=== PATIENT | male | born 1940 | race Caucasian/White ===

== ENCOUNTER → 2021-12-01 | Outpatient (CLI) | payer MEDICARE ==
[2021-12-01 10:03] LABS: INR 2.3 (<1.2); Prothrombin Time 23.1 sec (9.0-12.0)
== END | disposition home or self-care (01) ==
LOC: LABWHC1 09:30
PROVIDERS: ATTEND Dentist Oral and Maxillofacial Surgery
DX: Z51.81 Encounter for therapeutic drug level monitoring (principal)
CPT/HCPCS: 36415; 85610

== ENCOUNTER 2021-12-25 23:52 | Inpatient (IN) | payer MEDICARE ==
--- NOTE | 2021-12-26 00:06 | ED ---
SOB HPI - General Chief Complaint: Shortness of Breath Stated Complaint: MICA Time Seen by Provider: 12/26/21 00:05 Source: patient, family, RN notes reviewed, old records reviewed Mode of arrival: EMS Limitations: no limitations - History of Present Illness Initial Comments: This is a 81-year-old male DF for evaluation. Patient unable to find history s econdary to severe distress. Patient resents in significant respiratory distress respiratory failure placed on BiPAP on arrival and continued on BiPAP here in the emergency department. Patient initially presented with shortness of breath EMS. MD Complaint: shortness of breath, "asthma attack", anxiety -: hour(s) Radiation: back Severity: severe Severity scale (1-10): 10 Quality: dull Consistency: constant Improves With: nothing Known History Of: COPD Context: recent URI, anxiety, recent illness Associated Symptoms: cough, sputum production Treatments Prior to Arrival: oxygen, bronchodilator, NIPPV - Related Data Allergies Allergy/AdvReac Type Severity Reaction Status Date / Time erythromycin base Allergy Unknown Verified 12/26/21 00:31 penicillin V Allergy Unknown Verified 12/26/21 00:31 Review of Systems ROS Statement: Those systems with pertinent positive or pertinent negative responses have been documented in the HPI. ROS Other: All systems not noted in ROS Statement are negative. General Exam General appearance: alert, anxious, in distress Head exam: Present: atraumatic, normocephalic, normal inspection Eye exam: Present: normal appearance, PERRL, EOMI. Absent: scleral icterus, conjunctival injection, periorbital swelling ENT exam: Present: normal exam, mucous membranes dry Neck exam: Present: normal inspection. Absent: tenderness, meningismus, lymphadenopathy Respiratory exam: Present: normal lung sounds bilaterally, respiratory distress, wheezes, accessory muscle use, decreased breath sounds, prolonged expiratory. Absent: rales, rhonchi, stridor Cardiovascular Exam: Present: normal rhythm, tachycardia, normal heart sounds. Absent: systolic murmur, diastolic murmur, rubs, gallop, clicks GI/Abdominal exam: Present: soft, normal bowel sounds. Absent: distended, tenderness, guarding, rebound, rigid Extremities exam: Present: normal inspection, full ROM, normal capillary refill. Absent: tenderness, pedal edema, joint swelling, calf tenderness Back exam: Present: normal inspection Neurological exam: Present: alert, oriented X3, CN II-XII intact Psychiatric exam: Present: normal affect, normal mood Skin exam: Present: warm, dry, intact, normal color. Absent: rash Course Vital Signs 12/25/21 12/26/21 12/26/21 23:55 00:28 01:31 Temperature 98.9 F Pulse Rate 114 H 104 H 96 Respiratory 32 H 36 H 25 H Rate Blood Pressure 158/83 154/84 143/73 O2 Sat by Pulse 96 95 98 Oximetry 12/26/21 12/26/21 12/26/21 02:29 02:45 03:00 Temperature Pulse Rate 98 96 98 Respiratory 26 H Rate Blood Pressure 145/68 O2 Sat by Pulse 98 Oximetry 12/26/21 12/26/21 04:28 05:00 Temperature Pulse Rate 93 76 Respiratory 24 24 Rate Blood Pressure 137/78 130/75 O2 Sat by Pulse 98 100 Oximetry - Reevaluation(s) Reevaluation #1: 12/26/21 06:17 Medical record is reviewed Reevaluation #2: 12/26/21 06:17 Patient maintained on BiPAP here in the ER Reevaluation #3: 12/26/21 06:17 Patient informed of results and questions answered - Consultations Consultation #1: Spoke with H agree to admit the patient Medical Decision Making - Medical Decision Making 81 male DF for evaluation patient with severe distress, patient placed on BiPAP with significant improvement here in the emergency room. Patient continued to be placed on BiPAP with breathing treatments and cardiopulmonary evaluation - Lab Data Result diagrams: 12/26/21 00:39 12/26/21 00:39 Lab Results 12/26/21 12/26/21 12/26/21 Range/Units 00:39 00:39 00:39 WBC 14.5 H (3.8-10.6) k/uL RBC 4.61 (4.30-5.90) m/uL Hgb 13.7 (13.0-17.5) gm/dL Hct 41.1 (39.0-53.0) % MCV 89.0 (80.0-100.0) fL MCH 29.7 (25.0-35.0) pg MCHC 33.4 (31.0-37.0) g/dL RDW 13.4 (11.5-15.5) % Plt Count 462 H (150-450) k/uL MPV 7.5 Neutrophils % 78 % Lymphocytes % 13 % Monocytes % 6 % Eosinophils % 1 % Basophils % 1 % Neutrophils # 11.3 H (1.3-7.7) k/uL Lymphocytes # 1.8 (1.0-4.8) k/uL Monocytes # 0.9 (0-1.0) k/uL Eosinophils # 0.2 (0-0.7) k/uL Basophils # 0.1 (0-0.2) k/uL PT 26.2 H (9.0-12.0) sec INR 2.6 H (<1.2) APTT 38.3 H (22.0-30.0) sec Sodium 135 L (137-145) mmol/L Potassium 3.7 (3.5-5.1) mmol/L Chloride 96 L (98-107) mmol/L Carbon Dioxide 26 (22-30) mmol/L Anion Gap 13 mmol/L BUN 17 (9-20) mg/dL Creatinine 1.00 (0.66-1.25) mg/dL Est GFR (CKD-EPI)AfAm 82 (>60 ml/min/1.73 sqM) Est GFR (CKD-EPI)NonAf 71 (>60 ml/min/1.73 sqM) Glucose 145 H (74-99) mg/dL Plasma Lactic Acid Gama (0.7-2.0) mmol/L Calcium 9.3 (8.4-10.2) mg/dL Magnesium 1.6 (1.6-2.3) mg/dL Total Bilirubin 1.0 (0.2-1.3) mg/dL AST 34 (17-59) U/L ALT 26 (4-49) U/L Alkaline Phosphatase 78 (38-126) U/L Troponin I (0.000-0.034) ng/mL NT-Pro-B Natriuret Pep pg/mL Total Protein 7.6 (6.3-8.2) g/dL Albumin 4.5 (3.5-5.0) g/dL 12/26/21 12/26/21 12/26/21 Range/Units 00:39 00:39 00:39 WBC (3.8-10.6) k/uL RBC (4.30-5.90) m/uL Hgb (13.0-17.5) gm/dL Hct (39.0-53.0) % MCV (80.0-100.0) fL MCH (25.0-35.0) pg MCHC (31.0-37.0) g/dL RDW (11.5-15.5) % Plt Count (150-450) k/uL MPV Neutrophils % % Lymphocytes % % Monocytes % % Eosinophils % % Basophils % % Neutrophils # (1.3-7.7) k/uL Lymphocytes # (1.0-4.8) k/uL Monocytes # (0-1.0) k/uL Eosinophils # (0-0.7) k/uL Basophils # (0-0.2) k/uL PT (9.0-12.0) sec INR (<1.2) APTT (22.0-30.0) sec Sodium (137-145) mmol/L Potassium (3.5-5.1) mmol/L Chloride (98-107) mmol/L Carbon Dioxide (22-30) mmol/L Anion Gap mmol/L BUN (9-20) mg/dL Creatinine (0.66-1.25) mg/dL Est GFR (CKD-EPI)AfAm (>60 ml/min/1.73 sqM) Est GFR (CKD-EPI)NonAf (>60 ml/min/1.73 sqM) Glucose (74-99) mg/dL Plasma Lactic Acid Gama 1.3 (0.7-2.0) mmol/L Calcium (8.4-10.2) mg/dL Magnesium (1.6-2.3) mg/dL Total Bilirubin (0.2-1.3) mg/dL AST (17-59) U/L ALT (4-49) U/L Alkaline Phosphatase (38-126) U/L Troponin I <0.012 (0.000-0.034) ng/mL NT-Pro-B Natriuret Pep 135 pg/mL Total Protein (6.3-8.2) g/dL Albumin (3.5-5.0) g/dL - EKG Data -: EKG Interpreted by Me (EKG is sinus tachycardia 117 CO 161 QRS 88 QTc 386) - Radiology Data Radiology results: report reviewed (Chest x-rays negative for acute disease), image reviewed Disposition Clinical Impression: Acute exacerbation of chronic obstructive pulmonary disease, Acute respiratory failure, Hypoxia Disposition: ADMITTED IP TO THIS HOSP Condition: Serious Is patient prescribed a controlled substance at d/c from ED?: No
[2021-12-26] MEDS ORDERED: ALBUTEROL NEBULIZED 2.5 MG/3 ML INHALATION STA (00:35)
[2021-12-26] MEDS ORDERED: IPRATROPIUM 0.5 MG/2.5 ML NEBU INHALATION STA (00:35)
[2021-12-26] MEDS ORDERED: methylPREDNISolone SOD SUCCI 125 MG/2 ML VIAL IV STA (00:35)
[2021-12-26] MEDS ORDERED: SODIUM CHLORIDE 0.9% 1,000 ML IV STA (00:35)
[2021-12-26] MEDS ORDERED: MORPHINE SULFATE 2 MG/ML SYRINGE IVP PRN (00:36)
[2021-12-26] MEDS ORDERED: MORPHINE SULFATE 2 MG/ML SYRINGE IVP STA (00:36)
[2021-12-26] MEDS ORDERED: IPRATROPIUM-ALBUTEROL 3 ML NEB INHALATION STA (00:43)
--- NOTE | 2021-12-26 00:54 | XR ---
EXAMINATION TYPE: XR chest 1V portable DATE OF EXAM: 12/26/2021 COMPARISON: 07/02/2016 HISTORY: Short of breath TECHNIQUE: Single view FINDINGS: There is some mild linear density at the lung bases. There is coarsening of interstitial ma rkings. No heart failure seen. Heart size is normal. There are chest leads. IMPRESSION: There are some chronic scarring and atelectasis left lung base. Pulmonary interstitial fi brotic changes. Normal heart. No adverse change compared to old exam.
[2021-12-26 01:07] LABS: Basophils # (A) 0.1 k/uL (0-0.2); Basophils % (A) 1 %; Eosinophils # (A) 0.2 k/uL (0-0.7); Eosinophils % (A) 1 %; HCT 41.1 % (39.0-53.0); HGB 13.7 gm/dL (13.0-17.5); Lymphocytes # (A) 1.8 k/uL (1.0-4.8); Lymphocytes % (A) 13 %; MCH 29.7 pg (25.0-35.0); MCHC 33.4 g/dL (31.0-37.0); Mean Platelet Volume 7.5; Monocytes # (A) 0.9 k/uL (0-1.0); Monocytes % (A) 6 %; Neutrophils # (A) 11.3 k/uL (1.3-7.7); Neutrophils % (A) 78 %; Platelet Count 462 k/uL (150-450); RBC 4.61 m/uL (4.30-5.90); RDW 13.4 % (11.5-15.5); WBC 14.5 k/uL (3.8-10.6)
[2021-12-26 01:21] LABS: Albumin 4.5 g/dL (3.5-5.0); Calcium 9.3 mg/dL (8.4-10.2); Magnesium 1.6 mg/dL (1.6-2.3); Potassium 3.7 mmol/L (3.5-5.1); Total Protein 7.6 g/dL (6.3-8.2)
[2021-12-26 01:25] LABS: INR 2.6 (<1.2); Partial Thromboplastin Time 38.3 sec (22.0-30.0); Prothrombin Time 26.2 sec (9.0-12.0)
[2021-12-26] MEDS ORDERED: MORPHINE SULFATE 4 MG/ML SYRINGE IV PRN (01:29)
[2021-12-26] MEDS ORDERED: ONDANSETRON 4 MG/2 ML VIAL IVP PRN (01:29)
[2021-12-26] MEDS ORDERED: ACETAMINOPHEN TAB 325 MG TAB PO PRN (01:29)
[2021-12-26] MEDS ORDERED: NALOXONE 0.4 MG/ML 1 ML VIAL IV PRN (01:29)
[2021-12-26] MEDS: ALBUTEROL NEBULIZED 2.5 MG/3 ML INHALATION SCH ×5 (01:57→20:24)
[2021-12-26] MEDS: methylPREDNISolone SOD SUCCI 125 MG/2 ML VIAL IV SCH ×3 (06:41→19:24)
[2021-12-26] MEDS: SODIUM CHLORIDE 0.9% 1,000 ML IV SCH ×3 (06:42→18:39)
[2021-12-26] MEDS: IPRATROPIUM-ALBUTEROL 3 ML NEB INHALATION PRN ×4 (08:04→20:24)
[2021-12-26] MEDS ORDERED: ENOXAPARIN 40 MG/0.4 ML SYRINGE SQ SCH (09:00)
[2021-12-26] MEDS: FUROSEMIDE 10 MG/ML 4 ML VIAL IV SCH (11:40)
--- NOTE | 2021-12-26 13:46 | US ---
EXAMINATION TYPE: US venous doppler duplex LE DATE OF EXAM: 12/26/2021 1:26 PM COMPARISON: NONE CLINICAL HISTORY: swelling, asymmetry. EC patient with bilateral lower skin redness and swelling; [employer], CHF, Prior PE 10 years ago; taking blood thinner since then. SIDE PERFORMED: Bilateral TECHNIQUE: The lower extremity deep venous system is examined utilizing real time linear array sonog lily with graded compression, doppler sonography and color-flow sonography. VESSELS IMAGED: Common Femoral Vein Deep Femoral Vein Greater Saphenous Vein * Femoral Vein Popliteal Vein Small Saphenous Vein * Proximal Calf Veins (* superficial vessels) Right Leg: Negative for DVT; small hypoechoic fluid collection noted at right popliteal fossa = 3.7 x 0.8 x0.7cm and suggests Cardenas's Cyst or Popliteal Fossa Cyst. Left Leg: Negative for DVT Edema channels are noted at bilateral ankle level. IMPRESSION: No evidence for DVT at this time.
--- NOTE | 2021-12-26 15:20 | P.CNPUL ---
History of Present Illness Consult date: 12/26/21 Reason for consult: dyspnea, COPD History of present illness: 81-year-old male patient, coming in with worsening shortness of breath. The patient was Hospital as for an acute COPD exacerbation. The patient came into the ED and the patient was having significant respiratory distress and immediately the patient was placed on the BiPAP and currently is off the BiPAP. He is known to have COPD. Last evaluation in our office showed an FEV1 of 71% of predicted. The patient is known to have COPD and the patient remains on a combination of Advair and Spiriva on outpatient basis. Uses Proventil rescue inhaler necessary basis. His been on oxygen at 2.5 L per minute nasal cannula. He had COVID 19 infection back in September 2021. He has been vaccinated and boosted. 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 He apparently has an underlying hypercoagulable state. He has a previous history of DVT of the left lower extremity. For now, he has no chest pain or pleurisy. He has some increased edema in lower extremity bilaterally right more than left. He did have some dental procedure with extraction of 4. teeth. Nevertheless, the patient did not have any aspiration. He is an ex-smoker. Review of Systems Constitutional: Reports fatigue Eyes: denies as per HPI, denies blurred vision, denies bulging eye, denies decreased vision, denies diplopia, denies discharge, denies dry eye, denies irritation, denies itching, denies pain, denies photophobia, denies loss of peripheral vision, denies loss of vision, denies tunnel vision/blind spots Ears: deny: decreased hearing, ear discharge, earache, tinnitus Ears, nose, mouth and throat: Reports as per HPI Breasts: absent: as per HPI, gynecomastia Cardiovascular: Reports decreased exercise tolerance, Reports dyspnea on exertion, Reports leg edema, Reports shortness of breath Respiratory: Reports cough, Reports dyspnea Gastrointestinal: Reports as per HPI Genitourinary: Reports as per HPI Musculoskeletal: Reports as per HPI Musculoskeletal: bilateral: ankle swelling, absent: ankle pain, ankle stiffness Integumentary: Reports as per HPI, Reports darkening of skin Neurological: Reports as per HPI Psychiatric: Reports as per HPI Endocrine: Reports as per HPI Hematologic/Lymphatic: Reports as per HPI Allergic/Immunologic: Reports as per HPI Past Medical History Past Medical History: COPD, Deep Vein Thrombosis (DVT), Hyperlipidemia, Hypertension, Pulmonary Embolus (PE) Past Anesthesia/Blood Transfusion Reactions: No Reported Reaction Smoking Status: Former smoker Past Drug Use History: None Reported Medications and Allergies Home Medications Medication Instructions Recorded Confirmed Type Albuterol Nebulized [Ventolin 2.5 mg INHALATION RT-BID 12/26/21 12/26/21 History Nebulized] Albuterol Sulfate [Albuterol 2 puff PO Q6H PRN 12/26/21 12/26/21 History Sulfate Hfa] Fluticasone Propion/Salmeterol 1 puff INHALATION RT-BID 12/26/21 12/26/21 History [Fluticasone-Salmeterol 250-50] Furosemide [Lasix] 30 mg PO DAILY 12/26/21 12/26/21 History Losartan/Hydrochlorothiazide 1 tab PO DAILY 12/26/21 12/26/21 History [Losartan-Hctz 100-12.5 mg Tab] Niva-Fol 1 tab PO DAILY 12/26/21 12/26/21 History Omeprazole [PriLOSEC] 40 mg PO Q2D 12/26/21 12/26/21 History Potassium Chloride Oral Liquid 20 meq PO BID 12/26/21 12/26/21 History Pravastatin Sodium [Pravachol] 40 mg PO HS 12/26/21 12/26/21 History Tiotropium [place] [Spiriva] 1 cap INHALATION RT-DAILY 12/26/21 12/26/21 History Warfarin [Coumadin] 2.5 mg PO TU 12/26/21 12/26/21 History Warfarin [Coumadin] 5 mg PO SUMOWETHFRSA 12/26/21 12/26/21 History amLODIPine [Norvasc] 5 mg PO DAILY 12/26/21 12/26/21 History metFORMIN HCL [Glucophage] 500 mg PO BID-W/MEALS 12/26/21 12/26/21 History Allergies Allergy/AdvReac Type Severity Reaction Status Date / Time erythromycin base Allergy Unknown Verified 12/26/21 07:34 penicillin V Allergy Unknown Verified 12/26/21 07:34 Physical Exam Vitals: Vital Signs Temp Pulse Pulse Resp BP BP Pulse Ox 12/26/21 15:05 102 H 28 H 03/18/22 14:58 117 H 21 12/26/21 11:38 97 20 12/26/21 11:24 97 18 12/26/21 08:14 94 21 12/26/21 08:04 87 24 12/26/21 08:00 97.8 F 90 20 150/71 90 L 12/26/21 05:00 76 24 130/75 100 12/26/21 04:28 93 24 137/78 98 12/26/21 03:00 98 26 H 145/68 98 12/26/21 02:45 96 12/26/21 02:29 98 12/26/21 01:31 96 25 H 143/73 98 12/26/21 00:28 98.9 F 104 H 36 H 154/84 95 12/25/21 23:55 114 H 32 H 158/83 96 Intake and Output 12/26/21 12/26/21 12/26/21 06:59 14:59 22:59 Other: Weight 114.945 kg Gen. appearance, calm, comfortable, sitting up on a chair, not using accessory muscles of breathing Head exam was generally normal. There was no scleral icterus or corneal arcus. Mucous membranes were moist. Neck was supple and without jugular venous distension, thyromegaly, or carotid bruits. Carotids were easily palpable bilaterally. There was no adenopathy. Lungs sounds are diminished and the patient has scattered expiratory wheezes throughout the lung his bilaterally and prolongation of exhalation phase of breathing Cardiac exam revealed the PMI to be normally situated and sized. The rhythm was regular and no extrasystoles were noted during several minutes of auscultation. The first and second heart sounds were normal and physiologic splitting of the second heart sound was noted. There were no murmurs, rubs, clicks, or gallops. Abdominal exam revealed normal bowel sounds. The abdomen was soft, non-tender, and without masses, organomegaly, or appreciable enlargement of the abdominal aorta. Extremities are swollen right more than left and the patient is chronic venous stasis and lower extremity bilaterally Superficial ulcers of various sizes involving lower extremity bilaterally along with changes of chronic venous stasis on the right Neurologically, the patient is awake and alert and the patient does not have any focal neurological deficit. Cranial nerves are essentially intact. Results - Laboratory Findings CBC and BMP: 12/26/21 00:39 12/26/21 00:39 PT/INR, D-dimer PT 26.2 sec (9.0-12.0) H 12/26/21 00:39 INR 2.6 (<1.2) H 12/26/21 00:39 Abnormal lab findings: Abnormal Labs 12/26/21 12/26/21 12/26/21 00:39 00:39 00:39 WBC 14.5 H Plt Count 462 H Neutrophils # 11.3 H PT 26.2 H INR 2.6 H APTT 38.3 H Sodium 135 L Chloride 96 L Glucose 145 H - Diagnostic Findings Chest x-ray: image reviewed Assessment and Plan Plan: 1 acute COPD exacerbation, no evidence of any acute pneumonia. Chest x-ray showing some chronic scarring and atelectatic changes in lung bases bilaterally. No indication for an acute pneumonia. ProBNP level is not elevated. Troponi ns are all negative. Lactic acid level is at 1.3, the patient has been vaccinated an infected with COVID 19 in the past 2 shortness of breath secondary to above 3 history of chronic COPD with a previous spirometry shows an FEV1 of 71% of related to maintain on Spiriva and Advair an outpatient basis also has a pro- air rescue inhaler and O2 at 2.5 L per minute nasal cannula 4 obesity. 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 with warfarin, INR is therapeutic at 2.6 6 chronic lower extremity edema right more than left, questionable DVT 7 hypertension 8 hyperlipidemia Plan Titrate FiO2 to maintain a saturation above 90% DuoNeb nebulized treatments around the clock 4 times a day IV Solu Medrol 60 mg every 6 hours Doppler of the lower extremity bilaterally to rule out DVTs 2-D echocardiogram Lasix 40 mg IV every 24 hours Resume all medications Continue warfarin and monitor the PT/INR We'll continue to follow
[2021-12-26] MEDS: PANTOPRAZOLE 40 MG TABLET PO SCH (16:19)
[2021-12-26 17:03] LABS: Glucose,Whole Blood 145 mg/dL (75-99)
--- NOTE | 2021-12-26 17:15 | P.HPIM ---
History of Present Illness H&P Date: 12/26/21 Chief Complaint: Shortness of breath 81-year-old male patient, coming in with worsening shortness of breath. The patient was Hospital as for an acute COPD exacerbation. The patient came into the ED and the patient was having significant respiratory distress and immediately the patient was placed on the BiPAP and currently is off the BiPAP. He is known to have COPD. Last evaluation in our office showed an FEV1 of 71% of predicted. The patient is known to have COPD and the patient remains on a combination of Advair and Spiriva on outpatient basis. Uses Proventil rescue inhaler necessary basis. His been on oxygen at 2.5 L per minute nasal cannula. He had COVID 19 infection back in September 2021. He has been vaccinated and boosted. 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 He apparently has an underlying hypercoagulable state. He has a previous history of DVT of the left lower extremity. Laboratory completed in ED reveals WBC of 14.5, hemoglobin 13.7, platelet count of 462, sodium 135, potassium 2.7, BUN/creatinine of 17/1.0 and blood glucose of 145, INR 2.6 Chest x-ray reveals chronic scarring and atelectasis Review of Systems REVIEW OF SYSTEMS: CONSTITUTIONAL: No fever, no malaise, no fatigue. HEENT: No recent visual problems or hearing problems. Denied any sore throat. CARDIOVASCULAR: No chest pain, orthopnea, PND, no palpitations, no syncope. PULMONARY: Shortness of breath, no cough, no hemoptysis. GASTROINTESTINAL: No diarrhea, no nausea, no vomiting, no abdominal pain. NEUROLOGICAL: No headaches, no weakness, no numbness. HEMATOLOGICAL: Denies any bleeding or petechiae. GENITOURINARY: Denies any burning micturition, frequency, or urgency. MUSCULOSKELETAL/RHEUMATOLOGICAL: Denies any joint pain, swelling, or any muscle pain. ENDOCRINE: Denies any polyuria or polydipsia. The rest of the 14-point review of systems is negative. Past Medical History - Past Family History Father Family Medical History: COPD Additional Family Medical History / Comment(s): Father lived to be 90yrs old. Mother Family Medical History: Cancer Additional Family Medical History / Comment(s): Pt does not recall type of cancer. Medications and Allergies Home Medications Medication Instructions Recorded Confirmed Type Albuterol Nebulized [Ventolin 2.5 mg INHALATION RT-BID 12/26/21 12/26/21 History Nebulized] Albuterol Sulfate [Albuterol 2 puff PO Q6H PRN 12/26/21 12/26/21 History Sulfate Hfa] Fluticasone Propion/Salmeterol 1 puff INHALATION RT-BID 12/26/21 12/26/21 History [Fluticasone-Salmeterol 250-50] Furosemide [Lasix] 30 mg PO DAILY 12/26/21 12/26/21 History Losartan/Hydrochlorothiazide 1 tab PO DAILY 12/26/21 12/26/21 History [Losartan-Hctz 100-12.5 mg Tab] Niva-Fol 1 tab PO DAILY 12/26/21 12/26/21 History Omeprazole [PriLOSEC] 40 mg PO Q2D 12/26/21 12/26/21 History Potassium Chloride Oral Liquid 20 meq PO BID 12/26/21 12/26/21 History Pravastatin Sodium [Pravachol] 40 mg PO HS 12/26/21 12/26/21 History Tiotropium [place] [Spiriva] 1 cap INHALATION RT-DAILY 12/26/21 12/26/21 History Warfarin [Coumadin] 2.5 mg PO TU 12/26/21 12/26/21 History Warfarin [Coumadin] 5 mg PO SUMOWETHFRSA 12/26/21 12/26/21 History amLODIPine [Norvasc] 5 mg PO DAILY 12/26/21 12/26/21 History metFORMIN HCL [Glucophage] 500 mg PO BID-W/MEALS 12/26/21 12/26/21 History Allergies Allergy/AdvReac Type Severity Reaction Status Date / Time erythromycin base Allergy Unknown Verified 12/26/21 07:34 penicillin V Allergy Unknown Verified 12/26/21 07:34 Physical Exam Vitals: Vital Signs Temp Pulse Pulse Resp BP BP Pulse Ox 12/26/21 11:38 97 20 12/26/21 11:24 97 18 12/26/21 08:14 94 21 12/26/21 08:04 87 24 12/26/21 08:00 97.8 F 90 20 150/71 90 L 12/26/21 05:00 76 24 130/75 100 12/26/21 04:28 93 24 137/78 98 12/26/21 03:00 98 26 H 145/68 98 12/26/21 02:45 96 12/26/21 02:29 98 12/26/21 01:31 96 25 H 143/73 98 12/26/21 00:28 98.9 F 104 H 36 H 154/84 95 12/25/21 23:55 114 H 32 H 158/83 96 Intake and Output 12/25/21 12/26/21 12/26/21 22:59 06:59 14:59 Other: Weight 114.945 kg Gen. appearance, calm, comfortable, sitting up on a chair, not using accessory muscles of breathing Head exam was generally normal. There was no scleral icterus or corneal arcus. Mucous membranes were moist. Neck was supple and without jugular venous distension, thyromegaly, or carotid bruits. Carotids were easily palpable bilaterally. There was no adenopathy. Lungs sounds are diminished and the patient has scattered expiratory wheezes throughout the lung his bilaterally and prolongation of exhalation phase of breathing Cardiac exam revealed the PMI to be normally situated and sized. The rhythm was regular and no extrasystoles were noted during several minutes of auscultation. The first and second heart sounds were normal and physiologic splitting of the second heart sound was noted. There were no murmurs, rubs, clicks, or gallops. Abdominal exam revealed normal bowel sounds. The abdomen was soft, non-tender, and without masses, organomegaly, or appreciable enlargement of the abdominal aorta. Extremities are swollen right more than left and the patient is chronic venous stasis and lower extremity bilaterally Superficial ulcers of various sizes involving lower extremity bilaterally along with changes of chronic venous stasis on the right Neurologically, the patient is awake and alert and the patient does not have any focal neurological deficit. Cranial nerves are essentially intact. Results CBC & Chem 7: 12/26/21 00:39 12/26/21 00:39 Labs: Abnormal Lab Results - Last 24 Hours (Table) 12/26/21 12/26/21 12/26/21 Range/Units 00:39 00:39 00:39 WBC 14.5 H (3.8-10.6) k/uL Plt Count 462 H (150-450) k/uL Neutrophils # 11.3 H (1.3-7.7) k/uL PT 26.2 H (9.0-12.0) sec INR 2.6 H (<1.2) APTT 38.3 H (22.0-30.0) sec Sodium 135 L (137-145) mmol/L Chloride 96 L (98-107) mmol/L Glucose 145 H (74-99) mg/dL Assessment and Plan Assessment: 1. Acute hypoxemic respiratory failure; patient has been placed on BiPAP which will be titrated as able; pulmonary recommending to titrate FiO2 keeping O2 saturation greater than 90% 2. Acute exacerbation COPD; chest x-ray is negative for any evidence of pneumonia - DuoNeb nebulizer treatments 4 times a day along with IV Solu-Medrol 60 mg every 6 hours 3. Hypertension; amlodipine 5 mg daily; losartan 100 mg daily 4. Diabetes mellitus type 2; metformin 500 mg twice a day; monitor Accu-Cheks before meals and at bedtime with insulin sliding scale 5. History of DVT/PE; bilateral lower extremity venous Doppler is ordered to rule out acute DVT; patient remains on home dose of Coumadin; INR is therapeutic 6. Obesity; counseling done DVT prophylaxis; systemic anticoagulation CODE STATUS; full code
[2021-12-26] MEDS ORDERED: metFORMIN 500 MG TAB PO SCH (17:30)
[2021-12-26] MEDS ORDERED: WARFARIN 5 MG TAB PO SCH (18:00)
[2021-12-26] MEDS: INSULIN ASPART (NovoLOG) 100 UNIT/ML VIAL SQ SCH ×2 (18:39→21:24)
[2021-12-26 21:11] LABS: Glucose,Whole Blood 179 mg/dL (75-99)
[2021-12-26] MEDS: POTASSIUM BICARBONATE/CIT AC 20 MEQ TABLET.EFF PO SCH (21:25)
[2021-12-26] MEDS: PRAVASTATIN SODIUM 40 MG TAB PO SCH (21:25)
[2021-12-27] MEDS: ALBUTEROL NEBULIZED 2.5 MG/3 ML INHALATION SCH ×3 (00:01→07:40)
[2021-12-27] MEDS: methylPREDNISolone SOD SUCCI 125 MG/2 ML VIAL IV SCH ×4 (00:32→17:37)
[2021-12-27] MEDS: SODIUM CHLORIDE 0.9% 1,000 ML IV SCH ×3 (00:35→15:08)
[2021-12-27 06:54] LABS: Glucose,Whole Blood 165 mg/dL (75-99)
--- NOTE | 2021-12-27 07:12 | XR ---
EXAMINATION TYPE: XR chest 1V DATE OF EXAM: 12/27/2021 CLINICAL HISTORY: Difficulty breathing progress study. TECHNIQUE: Single AP portable upright view of the chest is obtained. COMPARISON: Chest x-ray from one day earlier FINDINGS: Persistent left basilar opacity now silhouetting left hemidiaphragm. Right lung remains cl ear. Cardiac silhouette size stable and mildly enlarged. Osseous structures are intact. IMPRESSION: Cardiomegaly with worsening left basilar infiltrate and/or atelectasis and possible new s mall left pleural effusion. Progress study advised.
[2021-12-27] MEDS: IPRATROPIUM-ALBUTEROL 3 ML NEB INHALATION PRN (07:40)
[2021-12-27 07:46] LABS: Prothrombin Time 53.3 sec (9.0-12.0)
[2021-12-27 07:48] LABS: INR 5.3 (<1.2)
[2021-12-27] MEDS: INSULIN ASPART (NovoLOG) 100 UNIT/ML VIAL SQ SCH ×4 (07:50→21:35)
[2021-12-27] MEDS ORDERED: IPRATROPIUM 0.5 MG/2.5 ML NEBU INHALATION SCH (08:00)
[2021-12-27] MEDS: IPRATROPIUM-ALBUTEROL 3 ML NEB INHALATION SCH ×4 (08:11→21:15)
[2021-12-27] MEDS ORDERED: NON FORMULARY DRUG (Losartan/Hydrochlorothiazide [Losartan-Hctz 100-12.5 Mg Tab] 1 EACH Ta PO SCH (09:00)
[2021-12-27] MEDS: amLODIPine 5 MG TAB PO SCH (09:28)
[2021-12-27] MEDS: LOSARTAN 50 MG TAB PO SCH (09:28)
[2021-12-27] MEDS: POTASSIUM BICARBONATE/CIT AC 20 MEQ TABLET.EFF PO SCH ×2 (09:28→21:35)
[2021-12-27] MEDS: hydroCHLOROthiazide 12.5 MG CAP PO SCH (09:28)
[2021-12-27] MEDS: FUROSEMIDE 10 MG/ML 4 ML VIAL IV SCH (09:51)
[2021-12-27 11:25] LABS: Basophils # (A) 0.01 X 10*3/uL (0.00-0.10); Basophils % (A) 0.1 %; Eosinophils # (A) 0 X 10*3/uL (0.04-0.35); Eosinophils % (A) 0 %; HCT 41.7 % (39.6-50.0); HGB 13.2 g/dL (13.0-17.0); Immature Grans, Automated 0.6 %; Lymphocytes # (A) 0.56 X 10*3/uL (0.90-5.00); Lymphocytes % (A) 3.4 %; MCH 28.7 pg (27.0-32.0); MCHC 31.7 g/dL (32.0-37.0); MCV 90.7 fL (80.0-97.0); Mean Platelet Volume 9.6 fL (9.5-12.2); Monocytes # (A) 0.59 X 10*3/uL (0.20-1.00); Monocytes % (A) 3.6 %; NRBC Per 100 WBC 0 /100 WBCS (0.0-0.0); Neutrophils # (A) 15.21 X 10*3/uL (1.80-7.70); Neutrophils % (A) 92.3 %; Platelet Count 471 X 10*3/uL (140-440); RDW 13.5 % (11.5-14.5); WBC 16.47 X 10*3/uL (4.50-10.00)
[2021-12-27 11:43] LABS: Glucose,Whole Blood 179 mg/dL (75-99)
[2021-12-27 11:52] LABS: African American GFR (CKD) 85.8 (60.0-200.0); Albumin 4.5 g/dL (3.8-4.9); Albumin/Globulin Ratio 1.64 (1.60-3.17); Anion Gap 16.5 mmol/L (10.00-18.00); BUN/Creat Ratio 26.01 Ratio (12.00-20.00); Blood Urea Nitrogen 25.2 mg/dL (9.0-27.0); Calcium 9.5 mg/dL (8.7-10.3); Globulin 2.7 g/dL (1.6-3.3); Magnesium 2.1 mg/dL (1.5-2.4); Phosphorus 3.3 mg/dL (2.4-5.1); Potassium 3.7 mmol/L (3.5-5.5); Total Bilirubin 0.5 mg/dL (0.30-1.20); Total Protein 7.2 g/dL (6.2-8.2)
--- NOTE | 2021-12-27 14:04 | P.PN ---
Subjective Progress Note Date: 12/27/21 On today's evaluation of 12/27/2021, the patient is feeling better. The patient is currently off the BiPAP. He was able to use the BiPAP throughout the night yesterday. For now, the patient is on a combination of bronchodilators steroids. Doppler of the lower descending was done and the results are still negative for DVT. The patient also had an echocardiogram results are still pending for now. Meanwhile, the patient is on Lasix 40 mg IV every 12 hours and the dose will be reduced to once a day. He is producing adequate amount of urine output. He remains on DuoNeb nebulized treatments around the clock. He remains on IV Solu Medrol 60 mg every 6 hours. PT/INR is subtherapeutic and is placed on hold for today. IV fluids will be cut down to KVO. The patient is on Coumadin and INR is at 5.3. BUN is at 25 and a creatinine of 1.0. The white cell count is 16.4. No chest pain. No altered mentation. No other significant events otherwise over the past 24 hours. Objective - Vital Signs Vital signs: Vital Signs Temp 97.4 F L 12/27/21 07:03 Pulse 90 12/27/21 11:48 Resp 24 12/27/21 07:03 BP 144/71 12/27/21 07:03 Pulse Ox 97 12/27/21 07:03 Intake & Output 12/26/21 12/27/21 12/27/21 18:59 06:59 18:59 Weight 114.945 kg Other: Voiding Method Toilet Toilet Urinal Urinal # Voids 1 1 - Exam GENERAL EXAM: Alert, active, shortness of breath with limited amount of activity. The patient is less short of breath and the patient is currently off BiPAP on 4 liters about 2 by nasal cannula HEAD: Normocephalic. EYES: Normal reaction of pupils, equal size. NOSE: Clear with pink turbinates. THROAT: No erythema or exudates. NECK: No masses, no JVD. CHEST: No chest wall deformity. LUNGS: Equal air entry with no crackles, wheeze, rhonchi or dullness. CVS: S1 and S2 normal with no audible murmur, regular rhythm. ABDOMEN: No hepatosplenomegaly, normal bowel sounds, no guarding or rigidity. SPINE: No scoliosis or deformity SKIN: No rashes CENTRAL NERVOUS SYSTEM: No focal deficits, tone is normal in all 4 extremities. EXTREMITIES: There is peripheral edema. No clubbing, no cyanosis. Peripheral pulses are intact. - Labs CBC & Chem 7: 12/27/21 06:55 12/27/21 06:55 Labs: Abnormal Lab Results - Last 24 Hours (Table) 12/26/21 12/26/21 12/27/21 Range/Units 17:02 21:10 06:52 WBC (4.50-10.00) X 10*3/uL MCHC (32.0-37.0) g/dL Plt Count (140-440) X 10*3/uL Immature Gran # (0.00-0.04) X 10*3/uL Neutrophils # (1.80-7.70) X 10*3/uL Lymphocytes # (0.90-5.00) X 10*3/uL Eosinophils # (0.04-0.35) X 10*3/uL PT (9.0-12.0) sec INR (<1.2) BUN/Creatinine Ratio (12.00-20.00) Ratio Glucose (70-110) mg/dL POC Glucose (mg/dL) 145 H 179 H 165 H (75-99) mg/dL 12/27/21 12/27/21 12/27/21 Range/Units 06:55 06:55 06:55 WBC 16.47 H (4.50-10.00) X 10*3/uL MCHC 31.7 L (32.0-37.0) g/dL Plt Count 471 H (140-440) X 10*3/uL Immature Gran # 0.10 H (0.00-0.04) X 10*3/uL Neutrophils # 15.21 H (1.80-7.70) X 10*3/uL Lymphocytes # 0.56 L (0.90-5.00) X 10*3/uL Eosinophils # 0 L (0.04-0.35) X 10*3/uL PT 53.3 H (9.0-12.0) sec INR 5.3 H* (<1.2) BUN/Creatinine Ratio 26.01 H (12.00-20.00) Ratio Glucose 171 H (70-110) mg/dL POC Glucose (mg/dL) (75-99) mg/dL 12/27/21 Range/Units 11:41 WBC (4.50-10.00) X 10*3/uL MCHC (32.0-37.0) g/dL Plt Count (140-440) X 10*3/uL Immature Gran # (0.00-0.04) X 10*3/uL Neutrophils # (1.80-7.70) X 10*3/uL Lymphocytes # (0.90-5.00) X 10*3/uL Eosinophils # (0.04-0.35) X 10*3/uL PT (9.0-12.0) sec INR (<1.2) BUN/Creatinine Ratio (12.00-20.00) Ratio Glucose (70-110) mg/dL POC Glucose (mg/dL) 179 H (75-99) mg/dL Assessment and Plan Plan: 1 acute COPD exacerbation, no evidence of any acute pneumonia. Chest x-ray showing some chronic scarring and atelectatic changes in lung bases bilaterally. No indication for an acute pneumonia. ProBNP level is not elevated. Troponins are all negative. Lactic acid level is at 1.3, the patient has been vaccinated an infected with COVID 19 in the past, clinically improving 2 shortness of breath secondary to above, improving 3 history of chronic COPD with a previous spirometry shows an FEV1 of 71% of related to maintain on Spiriva and Advair an outpatient basis also has a pro- air rescue inhaler and O2 at 2.5 L per minute nasal cannula 4 obesity. 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
[2021-12-27 16:25] LABS: Glucose,Whole Blood 149 mg/dL (75-99)
[2021-12-27] MEDS ORDERED: WARFARIN 0.5 MG TAB PO ONE (18:00)
[2021-12-27 20:44] LABS: Glucose,Whole Blood 204 mg/dL (75-99)
[2021-12-27] MEDS: PRAVASTATIN SODIUM 40 MG TAB PO SCH (21:35)
[2021-12-28] MEDS: methylPREDNISolone SOD SUCCI 125 MG/2 ML VIAL IV SCH ×5 (00:58→23:47)
[2021-12-28 05:28] LABS: Prothrombin Time 80.1 sec (9.0-12.0)
[2021-12-28 06:12] LABS: INR 7.8 (<1.2)
[2021-12-28 07:19] LABS: Glucose,Whole Blood 159 mg/dL (75-99)
[2021-12-28] MEDS: IPRATROPIUM-ALBUTEROL 3 ML NEB INHALATION SCH ×4 (08:05→21:15)
[2021-12-28] MEDS: hydroCHLOROthiazide 12.5 MG CAP PO SCH (08:07)
[2021-12-28] MEDS: INSULIN ASPART (NovoLOG) 100 UNIT/ML VIAL SQ SCH ×4 (08:07→21:34)
[2021-12-28] MEDS: LOSARTAN 50 MG TAB PO SCH (08:07)
[2021-12-28] MEDS: amLODIPine 5 MG TAB PO SCH (08:07)
[2021-12-28] MEDS: FUROSEMIDE 10 MG/ML 4 ML VIAL IV SCH (08:07)
[2021-12-28] MEDS: POTASSIUM BICARBONATE/CIT AC 20 MEQ TABLET.EFF PO SCH ×2 (08:09→21:35)
[2021-12-28 11:30] LABS: Glucose,Whole Blood 161 mg/dL (75-99)
[2021-12-28] MEDS: PANTOPRAZOLE 40 MG TABLET PO SCH (11:37)
[2021-12-28] MEDS ORDERED: PHYTONADIONE 2 MG in SODIUM CHLORIDE 0.9% 50 ML IVPB STA (12:42)
[2021-12-28] MEDS ORDERED: FUROSEMIDE 10 MG/ML 4 ML VIAL IV STA (14:16)
--- NOTE | 2021-12-28 14:29 | XR ---
EXAMINATION TYPE: XR chest 1V portable DATE OF EXAM: 12/28/2021 CLINICAL HISTORY: Difficulty breathing and hypoxia progress study. TECHNIQUE: Single AP portable upright view of the chest is obtained. COMPARISON: Chest x-ray from one day earlier and older studies. FINDINGS: Persistent left basilar opacity. Right lung remains predominantly clear. Cardiac silhouett e size stable and mildly enlarged. Osseous structures are intact. IMPRESSION: Cardiomegaly with small to tiny bilateral pleural effusions suspected and left greater th an right bibasilar atelectasis and/or infiltrate redemonstrated. No significant change from one day e
--- NOTE | 2021-12-28 14:59 | P.PN ---
Subjective Progress Note Date: 12/27/21 Principal diagnosis: Acute hypoxemic respiratory failure Acute exacerbation COPD 81-year-old male patient, coming in with worsening shortness of breath. The patient was Hospital as for an acute COPD exacerbation. The patient came into the ED and the patient was having significant respiratory distress and immediately the patient was placed on the BiPAP and currently is off the BiPAP. He is known to have COPD. Last evaluation in our office showed an FEV1 of 71% of predicted. The patient is known to have COPD and the patient remains on a combination of Advair and Spiriva on outpatient basis. Uses Proventil rescue inhaler necessary basis. His been on oxygen at 2.5 L per minute nasal cannula. He had COVID 19 infection back in September 2021. He has been vaccinated and boosted. 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 He apparently has an underlying hypercoagulable state. He has a previous history of DVT of the left lower extremity. Laboratory completed in ED reveals WBC of 14.5, hemoglobin 13.7, platelet count of 462, sodium 135, potassium 2.7, BUN/creatinine of 17/1.0 and blood glucose of 145, INR 2.6 Chest x-ray reveals chronic scarring and atelectasis 12/27/2021, Patient reports some improvement in breathing. The patient is currently off the BiPAP. He was able to use the BiPAP throughout the night yesterday. -- patient remains on a combination of bronchodilators steroids. Doppler of the lower descending was done and the results are negative for DVT. The patient also had an echocardiogram results are still pending for now. -- Patient remains on Lasix 40 mg IV every 12 hours and the dose will be reduced to once a day; DuoNeb nebulized treatments around the clock; IV Solu Medrol 60 mg every 6 hours. PT/INR is subtherapeutic and is placed on hold for today. IV fluids will be cut down to KVO. The patient is on Coumadin and INR is at 5.3. BUN is at 25 and a creatinine of 1.0. The white cell count is 16.4. No chest pain. No altered mentation. No other significant events otherwise over the past 24 hours. Objective - Vital Signs Vital signs: Vital Signs Temp 97.4 F L 12/27/21 07:03 Pulse 90 12/27/21 11:48 Resp 24 12/27/21 07:03 BP 144/71 12/27/21 07:03 Pulse Ox 97 12/27/21 07:03 Intake & Output 12/26/21 12/27/21 12/27/21 18:59 06:59 18:59 Weight 114.945 kg Other: Voiding Method Toilet Toilet Urinal Urinal # Voids 1 1 - Exam Gen. appearance, calm, comfortable, sitting up on a chair, not using accessory muscles of breathing Head exam was generally normal. There was no scleral icterus or corneal arcus. Mucous membranes were moist. Neck was supple and without jugular venous distension, thyromegaly, or carotid bruits. Carotids were easily palpable bilaterally. There was no adenopathy. Lungs sounds are diminished and the patient has scattered expiratory wheezes throughout the lung his bilaterally and prolongation of exhalation phase of breathing Cardiac exam revealed the PMI to be normally situated and sized. The rhythm was regular and no extrasystoles were noted during several minutes of auscultation. The first and second heart sounds were normal and physiologic splitting of the second heart sound was noted. There were no murmurs, rubs, clicks, or gallops. Abdominal exam revealed normal bowel sounds. The abdomen was soft, non-tender, and without masses, organomegaly, or appreciable enlargement of the abdominal aorta. Extremities are swollen right more than left and the patient is chronic venous stasis and lower extremity bilaterally Superficial ulcers of various sizes involving lower extremity bilaterally along with changes of chronic venous stasis on the right Neurologically, the patient is awake and alert and the patient does not have any focal neurological deficit. Cranial nerves are essentially intact. - Labs CBC & Chem 7: 12/27/21 06:55 12/27/21 06:55 Labs: Abnormal Lab Results - Last 24 Hours (Table) 12/26/21 12/26/21 12/27/21 Range/Units 17:02 21:10 06:52 WBC (4.50-10.00) X 10*3/uL MCHC (32.0-37.0) g/dL Plt Count (140-440) X 10*3/uL Immature Gran # (0.00-0.04) X 10*3/uL Neutrophils # (1.80-7.70) X 10*3/uL Lymphocytes # (0.90-5.00) X 10*3/uL Eosinophils # (0.04-0.35) X 10*3/uL PT (9.0-12.0) sec INR (<1.2) BUN/Creatinine Ratio (12.00-20.00) Ratio Glucose (70-110) mg/dL POC Glucose (mg/dL) 145 H 179 H 165 H (75-99) mg/dL 12/27/21 12/27/21 12/27/21 Range/Units 06:55 06:55 06:55 WBC 16.47 H (4.50-10.00) X 10*3/uL MCHC 31.7 L (32.0-37.0) g/dL Plt Count 471 H (140-440) X 10*3/uL Immature Gran # 0.10 H (0.00-0.04) X 10*3/uL Neutrophils # 15.21 H (1.80-7.70) X 10*3/uL Lymphocytes # 0.56 L (0.90-5.00) X 10*3/uL Eosinophils # 0 L (0.04-0.35) X 10*3/uL PT 53.3 H (9.0-12.0) sec INR 5.3 H* (<1.2) BUN/Creatinine Ratio 26.01 H (12.00-20.00) Ratio Glucose 171 H (70-110) mg/dL POC Glucose (mg/dL) (75-99) mg/dL 12/27/21 Range/Units 11:41 WBC (4.50-10.00) X 10*3/uL MCHC (32.0-37.0) g/dL Plt Count (140-440) X 10*3/uL Immature Gran # (0.00-0.04) X 10*3/uL Neutrophils # (1.80-7.70) X 10*3/uL Lymphocytes # (0.90-5.00) X 10*3/uL Eosinophils # (0.04-0.35) X 10*3/uL PT (9.0-12.0) sec INR (<1.2) BUN/Creatinine Ratio (12.00-20.00) Ratio Glucose (70-110) mg/dL POC Glucose (mg/dL) 179 H (75-99) mg/dL Assessment and Plan Assessment: 1. Acute hypoxemic respiratory failure; patient has been placed on BiPAP which will be titrated as able; pulmonary recommending to titrate FiO2 keeping O2 saturation greater than 90% 2. Acute exacerbation COPD; chest x-ray is negative for any evidence of pneumonia - DuoNeb nebulizer treatments 4 times a day along with IV Solu-Medrol 60 mg every 6 hours 3. Hypertension; amlodipine 5 mg daily; losartan 100 mg daily 4. Diabetes mellitus type 2; metformin 500 mg twice a day; monitor Accu-Cheks b efore meals and at bedtime with insulin sliding scale 5. History of DVT/PE; bilateral lower extremity venous Doppler is ordered to rule out acute DVT; patient remains on home dose of Coumadin; INR is therapeutic 6. Obesity; counseling done DVT prophylaxis; systemic anticoagulation CODE STATUS; full code
--- NOTE | 2021-12-28 16:18 | P.PN ---
Subjective Progress Note Date: 12/28/21 On today's evaluation of 12/27/2021, the patient is feeling better. The patient is currently off the BiPAP. He was able to use the BiPAP throughout the night yesterday. For now, the patient is on a combination of bronchodilators steroids. Doppler of the lower descending was done and the results are still negative for DVT. The patient also had an echocardiogram results are still pending for now. Meanwhile, the patient is on Lasix 40 mg IV every 12 hours and the dose will be reduced to once a day. He is producing adequate amount of urine output. He remains on DuoNeb nebulized treatments around the clock. He remains on IV Solu Medrol 60 mg every 6 hours. PT/INR is subtherapeutic and is placed on hold for today. IV fluids will be cut down to KVO. The patient is on Coumadin and INR is at 5.3. BUN is at 25 and a creatinine of 1.0. The white cell count is 16.4. No chest pain. No altered mentation. No other significant events otherwise over the past 24 hours. On 12/28/2021, the patient is doing well. The patient is being treated for an acute COPD exacerbation. The patient is also noted to have increased lower extremity edema and the patient is being dialyzed IV Lasix. There is further optimization in the fluid balance. Echocardiogram results are still pending. Note that the Doppler of the lower extremity were negative for DVTs. INR is still elevated and the patient will be given vitamin K today. No signs of any bleeding. INR today is at 7.8 and I'm recommending giving the patient total of 2 mg IV the patient remains on IV Solu Medrol. No new complaints. The patient has been sleeping in recliner as the patient has not been able to sleep in bed for many years. Objective - Vital Signs Vital signs: Vital Signs Temp 98.0 F 12/28/21 13:38 Pulse 106 H 12/28/21 16:02 Resp 28 H 12/28/21 13:38 BP 143/73 12/28/21 13:38 Pulse Ox 96 12/28/21 13:38 Intake & Output 12/27/21 12/28/21 12/28/21 18:59 06:59 18:59 Other: Voiding Method Toilet Toilet Urinal Urinal # Voids 1 1 - Exam GENERAL EXAM: Alert, active, shortness of breath with limited amount of activity. The patient is less short of breath and the patient is currently off BiPAP on 4 liters about 2 by nasal cannula HEAD: Normocephalic. EYES: Normal reaction of pupils, equal size. NOSE: Clear with pink turbinates. THROAT: No erythema or exudates. NECK: No masses, no JVD. CHEST: No chest wall deformity. LUNGS: Equal air entry with no crackles, wheeze, rhonchi or dullness. CVS: S1 and S2 normal with no audible murmur, regular rhythm. ABDOMEN: No hepatosplenomegaly, normal bowel sounds, no guarding or rigidity. SPINE: No scoliosis or deformity SKIN: No rashes CENTRAL NERVOUS SYSTEM: No focal deficits, tone is normal in all 4 extremities. EXTREMITIES: There is peripheral edema. No clubbing, no cyanosis. Peripheral pulses are intact. - Labs CBC & Chem 7: 12/27/21 06:55 12/27/21 06:55 Labs: Abnormal Lab Results - Last 24 Hours (Table) 12/27/21 12/27/21 12/28/21 Range/Units 16:23 20:20 04:15 PT (9.0-12.0) sec INR (<1.2) POC Glucose (mg/dL) 149 H 204 H (75-99) mg/dL Hemoglobin A1c 6.5 H (0.0-6.0) % 12/28/21 12/28/21 12/28/21 Range/Units 04:15 07:17 11:28 PT 80.1 H (9.0-12.0) sec INR 7.8 H* (<1.2) POC Glucose (mg/dL) 159 H 161 H (75-99) mg/dL Hemoglobin A1c (0.0-6.0) % Assessment and Plan Plan: 1 acute COPD exacerbation, no evidence of any acute pneumonia. Chest x-ray showing some chronic scarring and atelectatic changes in lung bases bilaterally. No indication for an acute pneumonia. ProBNP level is not elevated. Troponins are all negative. Lactic acid level is at 1.3, the patient has been vaccinated an infected with COVID 19 in the past, clinically improving 2 shortness of breath secondary to above, improving 3 history of chronic COPD with a previous spirometry shows an FEV1 of 71% of related to maintain on Spiriva and Advair an outpatient basis also has a pro- air rescue inhaler and O2 at 2.5 L per minute nasal cannula 4 obesity. 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 with warfarin, INR is therapeutic at 2.6 6 chronic lower extremity edema right more than left, questionable DVT 7 hypertension 8 hyperlipidemia Plan Clinically improving Titrate FiO2 to maintain a saturation above 90% DuoNeb nebulized treatments around the clock 4 times a day IV Solu Medrol 60 mg every 6 hours, will suggest IV Solu Medrol for another 24 hours Doppler of the lower extremity bilaterally were negative for DVT 2-D echocardiogram results are still pending Continue Lasix 40 mg IV every 24 hours IV fluids to KVO Resume all medications INR is supratherapeutic and hold her Coumadin for now, give the patient 2 mg IV vitamin K repeated PT/INR. No signs of any bleeding for now. Clinically improving We'll continue to follow
[2021-12-28 17:02] LABS: Glucose,Whole Blood 161 mg/dL (75-99)
[2021-12-28] MEDS: SODIUM CHLORIDE 0.9% 1,000 ML IV SCH (17:02)
[2021-12-28] MEDS ORDERED: WARFARIN 0.5 MG TAB PO ONE (18:00)
--- NOTE | 2021-12-28 20:10 | P.PN ---
Subjective Progress Note Date: 12/28/21 Principal diagnosis: Acute hypoxemic respiratory failure Acute exacerbation COPD 81-year-old male patient, coming in with worsening shortness of breath. The patient was Hospital as for an acute COPD exacerbation. The patient came into the ED and the patient was having significant respiratory distress and immediately the patient was placed on the BiPAP and currently is off the BiPAP. He is known to have COPD. Last evaluation in our office showed an FEV1 of 71% of predicted. The patient is known to have COPD and the patient remains on a combination of Advair and Spiriva on outpatient basis. Uses Proventil rescue inhaler necessary basis. His been on oxygen at 2.5 L per minute nasal cannula. He had COVID 19 infection back in September 2021. He has been vaccinated and boosted. 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 He apparently has an underlying hypercoagulable state. He has a previous history of DVT of the left lower extremity. Laboratory completed in ED reveals WBC of 14.5, hemoglobin 13.7, platelet count of 462, sodium 135, potassium 2.7, BUN/creatinine of 17/1.0 and blood glucose of 145, INR 2.6 Chest x-ray reveals chronic scarring and atelectasis 12/27/2021, Patient reports some improvement in breathing. The patient is currently off the BiPAP. He was able to use the BiPAP throughout the night yesterday. -- patient remains on a combination of bronchodilators steroids. Doppler of the lower descending was done and the results are negative for DVT. The patient also had an echocardiogram results are still pending for now. -- Patient remains on Lasix 40 mg IV every 12 hours and the dose will be reduced to once a day; DuoNeb nebulized treatments around the clock; IV Solu Medrol 60 mg every 6 hours. PT/INR is subtherapeutic and is placed on hold for today. IV fluids will be cut down to KVO. The patient is on Coumadin and INR is at 5.3. BUN is at 25 and a creatinine of 1.0. The white cell count is 16.4. No chest pain. No altered mentation. No other significant events otherwise over the past 24 hours. 12/28/2021 Patient is seen and evaluated in room at bedside; discussed with nursing staff; reports worsening shortness of breath. The patient is being treated for an a cute COPD exacerbation. Vital signs are reviewed and reveal a temperature of 98, pulse 106, respiration 20 and blood pressure 143/73 The patient is also noted to have increased lower extremity edema and the patient is being diuresed with IV Lasix. There is further optimization in the fluid balance. Echocardiogram results are still pending. Note that the Doppler of the lower extremity were negative for DVTs. INR is still elevated and the patient will be given vitamin K today. No signs of any bleeding. INR today is at 7.8 and I'm recommending giving the patient total of 2 mg IV the patient remains on IV Solu Medrol. No new complaints. Objective - Vital Signs Vital signs: Vital Signs Temp 98.0 F 12/28/21 13:38 Pulse 100 12/28/21 13:38 Resp 28 H 12/28/21 13:38 BP 143/73 12/28/21 13:38 Pulse Ox 96 12/28/21 07:52 Intake & Output 12/27/21 12/28/21 12/28/21 18:59 06:59 18:59 Other: Voiding Method Toilet Toilet Urinal Urinal # Voids 1 1 - Exam Gen. appearance, calm, comfortable, sitting up on a chair, not using accessory muscles of breathing Head exam was generally normal. There was no scleral icterus or corneal arcus. Mucous membranes were moist. Neck was supple and without jugular venous distension, thyromegaly, or carotid bruits. Carotids were easily palpable bilaterally. There was no adenopathy. Lungs sounds are diminished and the patient has scattered expiratory wheezes throughout the lung his bilaterally and prolongation of exhalation phase of breathing Cardiac exam revealed the PMI to be normally situated and sized. The rhythm was regular and no extrasystoles were noted during several minutes of auscultation. The first and second heart sounds were normal and physiologic splitting of the second heart sound was noted. There were no murmurs, rubs, clicks, or gallops. Abdominal exam revealed normal bowel sounds. The abdomen was soft, non-tender, and without masses, organomegaly, or appreciable enlargement of the abdominal aorta. Extremities are swollen right more than left and the patient is chronic venous stasis and lower extremity bilaterally Superficial ulcers of various sizes involving lower extremity bilaterally along with changes of chronic venous stasis on the right Neurologically, the patient is awake and alert and the patient does not have any focal neurological deficit. Cranial nerves are essentially intact. - Labs CBC & Chem 7: 12/27/21 06:55 12/27/21 06:55 Labs: Abnormal Lab Results - Last 24 Hours (Table) 12/27/21 12/27/21 12/28/21 Range/Units 16:23 20:20 04:15 PT (9.0-12.0) sec INR (<1.2) POC Glucose (mg/dL) 149 H 204 H (75-99) mg/dL Hemoglobin A1c 6.5 H (0.0-6.0) % 12/28/21 12/28/21 12/28/21 Range/Units 04:15 07:17 11:28 PT 80.1 H (9.0-12.0) sec INR 7.8 H* (<1.2) POC Glucose (mg/dL) 159 H 161 H (75-99) mg/dL Hemoglobin A1c (0.0-6.0) % Assessment and Plan Assessment: 1. Acute hypoxemic respiratory failure; patient has been placed on BiPAP which will be titrated as able; pulmonary recommending to titrate FiO2 keeping O2 saturation greater than 90% 2. Acute exacerbation COPD; chest x-ray is negative for any evidence of pneumonia - DuoNeb nebulizer treatments 4 times a day along with IV Solu-Medrol 60 mg every 6 hours 3. Hypertension; amlodipine 5 mg daily; losartan 100 mg daily 4. Diabetes mellitus type 2; metformin 500 mg twice a day; monitor Accu-Cheks before meals and at bedtime with insulin sliding scale 5. History of DVT/PE; bilateral lower extremity venous Doppler is ordered to rule out acute DVT; patient remains on home dose of Coumadin; INR is therapeutic 6. Obesity; counseling done DVT prophylaxis; systemic anticoagulation CODE STATUS; full code
[2021-12-28 21:15] LABS: Glucose,Whole Blood 190 mg/dL (75-99)
[2021-12-28] MEDS: PRAVASTATIN SODIUM 40 MG TAB PO SCH (21:35)
[2021-12-28] MEDS: guaiFENesin 600 MG TABLET.ER PO SCH (21:35)
[2021-12-29] MEDS: IPRATROPIUM-ALBUTEROL 3 ML NEB INHALATION PRN (02:34)
[2021-12-29] MEDS ORDERED: LORazepam 2 MG/ML INJ IV STA (03:52)
[2021-12-29] MEDS: methylPREDNISolone SOD SUCCI 125 MG/2 ML VIAL IV SCH ×4 (05:03→23:36)
[2021-12-29 06:40] LABS: INR 1.3 (<1.2); Prothrombin Time 13.2 sec (9.0-12.0)
[2021-12-29 07:45] LABS: Glucose,Whole Blood 177 mg/dL (75-99)
[2021-12-29] MEDS: IPRATROPIUM-ALBUTEROL 3 ML NEB INHALATION SCH ×4 (08:44→21:51)
[2021-12-29] MEDS: LOSARTAN 50 MG TAB PO SCH (09:17)
[2021-12-29] MEDS: POTASSIUM BICARBONATE/CIT AC 20 MEQ TABLET.EFF PO SCH ×2 (09:17→21:30)
[2021-12-29] MEDS: guaiFENesin 600 MG TABLET.ER PO SCH ×2 (09:17→21:30)
[2021-12-29] MEDS: INSULIN ASPART (NovoLOG) 100 UNIT/ML VIAL SQ SCH ×4 (09:17→21:29)
[2021-12-29] MEDS: hydroCHLOROthiazide 12.5 MG CAP PO SCH (09:17)
[2021-12-29] MEDS: FUROSEMIDE 10 MG/ML 4 ML VIAL IV SCH (09:18)
[2021-12-29] MEDS: amLODIPine 5 MG TAB PO SCH (09:18)
[2021-12-29 10:17] LABS: Basophils # (A) 0.1 k/uL (0-0.2); Basophils % (A) 0 %; Eosinophils % (A) 0 %; HCT 43.9 % (39.0-53.0); HGB 14.4 gm/dL (13.0-17.5); Lymphocytes # (A) 0.4 k/uL (1.0-4.8); Lymphocytes % (A) 2 %; MCHC 32.7 g/dL (31.0-37.0); Mean Platelet Volume 7.2; Monocytes # (A) 1.6 k/uL (0-1.0); Monocytes % (A) 6 %; Neutrophils # (A) 24.5 k/uL (1.3-7.7); Neutrophils % (A) 91 %; Platelet Count 503 k/uL (150-450); RBC 4.78 m/uL (4.30-5.90); RDW 13.5 % (11.5-15.5); WBC 26.8 k/uL (3.8-10.6)
[2021-12-29 10:29] LABS: African American GFR (CKD) 61 (>60 ml/min/1.73 sqM); Anion Gap 9 mmol/L; Blood Urea Nitrogen 55 mg/dL (9-20); Calcium 9.3 mg/dL (8.4-10.2); Carbon Dioxide 34 mmol/L (22-30); Chloride 94 mmol/L (98-107); Glucose 210 mg/dL (74-99); Non-African American GFR(CKD) 53 (>60 ml/min/1.73 sqM); Potassium 3.5 mmol/L (3.5-5.1); Sodium 137 mmol/L (137-145)
[2021-12-29 11:39] LABS: Glucose,Whole Blood 169 mg/dL (75-99)
[2021-12-29] MEDS: SODIUM CHLORIDE 0.9% 1,000 ML IV SCH (11:51)
--- NOTE | 2021-12-29 12:28 | XR ---
EXAMINATION TYPE: XR chest 1V portable DATE OF EXAM: 12/29/2021 COMPARISON: 12/28/2021 HISTORY: Hypoxia TECHNIQUE: Single frontal view of the chest is obtained. FINDINGS: A bilateral lower lobe infiltrate and small effusion. Heart size stable. Hypertrophic and degenerative change of the spine. Arthropathy of the shoulders. No pneumothorax. IMPRESSION: Stable bilateral infiltrate and pleural effusion.
[2021-12-29] MEDS ORDERED: ALPRAZolam 0.25 MG TAB PO PRN (13:09)
[2021-12-29 13:40] LABS: African American GFR (CKD) 61 (>60 ml/min/1.73 sqM); Anion Gap 10 mmol/L; Blood Urea Nitrogen 56 mg/dL (9-20); Calcium 9.4 mg/dL (8.4-10.2); Carbon Dioxide 35 mmol/L (22-30); Chloride 93 mmol/L (98-107); Glucose 161 mg/dL (74-99); Magnesium 2.4 mg/dL (1.6-2.3); Non-African American GFR(CKD) 53 (>60 ml/min/1.73 sqM); Potassium 3.6 mmol/L (3.5-5.1); Sodium 138 mmol/L (137-145)
[2021-12-29] MEDS: CLINDAMYCIN 300 MG in DEXTROSE 5% IN WATER 50 ML IVPB SCH ×4 (13:46→19:49)
--- NOTE | 2021-12-29 15:37 | P.PN ---
Subjective Progress Note Date: 12/29/21 Principal diagnosis: Shortness of breath On today's evaluation of 12/27/2021, the patient is feeling better. The patient is currently off the BiPAP. He was able to use the BiPAP throughout the night yesterday. For now, the patient is on a combination of bronchodilators steroi ds. Doppler of the lower descending was done and the results are still negative for DVT. The patient also had an echocardiogram results are still pending for now. Meanwhile, the patient is on Lasix 40 mg IV every 12 hours and the dose will be reduced to once a day. He is producing adequate amount of urine output. He remains on DuoNeb nebulized treatments around the clock. He remains on IV Solu Medrol 60 mg every 6 hours. PT/INR is subtherapeutic and is placed on hold for today. IV fluids will be cut down to KVO. The patient is on Coumadin and INR is at 5.3. BUN is at 25 and a creatinine of 1.0. The white cell count is 16.4. No chest pain. No altered mentation. No other significant events otherwise over the past 24 hours. On 12/28/2021, the patient is doing well. The patient is being treated for an acute COPD exacerbation. The patient is also noted to have increased lower extremity edema and the patient is being dialyzed IV Lasix. There is further optimization in the fluid balance. Echocardiogram results are still pending. Note that the Doppler of the lower extremity were negative for DVTs. INR is still elevated and the patient will be given vitamin K today. No signs of any bleeding. INR today is at 7.8 and I'm recommending giving the patient total of 2 mg IV the patient remains on IV Solu Medrol. No new complaints. The patient has been sleeping in recliner as the patient has not been able to sleep in bed for many years. On 12/29/2021 patient seen in follow-up on medical surgical floor. Patient is dyspneic, earlier today she was desaturating on 6 L of high flow nasal cannula to 78%, and he was subsequently placed on BiPAP support and his oxygenation did improve up to 97-98%. He is awake and alert, oriented 3, he sitting up in the chair, his family is at the bedside, he has a congested cough, producing some phlegm, no fever. He describes the phlegm is yellow. No hemoptysis. He remains on once daily dose of Lasix 40 mg, on nebulized bronchodilators and IV steroids. Today's labs have been reviewed, there is been an increase in his white blood cell count up to 26.8, hemoglobin is 14.4, his INR is 1.3, Coumadin remains on hold, d-dimer was negative at less than 0.17, sodium is 138, potassium 3.6, chloride is 93, CO2 is 35, B1 is 56 and creatinine is 1.29. His lactic acid is 1.3. Procalcitonin level has been sent and pending Objective - Vital Signs Vital signs: Vital Signs Temp 98.5 F 12/29/21 14:00 Pulse 99 12/29/21 14:00 Resp 27 H 12/29/21 14:00 BP 112/68 12/29/21 14:00 Pulse Ox 98 12/29/21 14:00 Intake & Output 12/28/21 12/29/21 12/29/21 18:59 06:59 18:59 Output Total 500 740 Balance -500 -740 Output: Urine 500 740 Other: Voiding Method Bedside Commode Bedside Commode Urinal Urinal # Voids 1 # Bowel Movements 0 - Exam GENERAL EXAM: Alert, very pleasant, 81-year-old white male, short of breath, wheezy, sitting up in the chair, on BiPAP support comfortable in no apparent distress. HEAD: Normocephalic/atraumatic. EYES: Normal reaction of pupils, equal size. Conjunctiva pink, sclera white. NOSE: Clear with pink turbinates. THROAT: No erythema or exudates. NECK: No masses, no JVD, no thyroid enlargement, no adenopathy. CHEST: No chest wall deformity. Symmetrical expansion. LUNGS: Equal air entry with diffuse wheezes CVS: Regular rate and rhythm, normal S1 and S2, no gallops, no murmurs, no rubs ABDOMEN: Soft, nontender. No hepatosplenomegaly, normal bowel sounds, no guarding or rigidity. EXTREMITIES: No clubbing, no edema, no cyanosis, 2+ pulses and upper and lower extremities. MUSCULOSKELETAL: Muscle strength and tone normal. SPINE: No scoliosis or deformity SKIN: There is a chronic redness in bilateral lower extremities, with areas of rash CENTRAL NERVOUS SYSTEM: Alert and oriented -3. No focal deficits, tone is normal in all 4 extremities. PSYCHIATRIC: Alert and oriented -3. Appropriate affect. Intact judgment and i nsight. - Labs CBC & Chem 7: 12/29/21 09:47 12/29/21 12:39 Labs: Abnormal Lab Results - Last 24 Hours (Table) 12/28/21 12/28/21 12/29/21 Range/Units 17:00 21:11 05:22 WBC (3.8-10.6) k/uL Plt Count (150-450) k/uL Neutrophils # (1.3-7.7) k/uL Lymphocytes # (1.0-4.8) k/uL Monocytes # (0-1.0) k/uL ESR (0-15) mm/hr PT 13.2 H (9.0-12.0) sec INR 1.3 H (<1.2) Chloride (98-107) mmol/L Carbon Dioxide (22-30) mmol/L BUN (9-20) mg/dL Creatinine (0.66-1.25) mg/dL Glucose (74-99) mg/dL POC Glucose (mg/dL) 161 H 190 H (75-99) mg/dL Magnesium (1.6-2.3) mg/dL 12/29/21 12/29/21 12/29/21 Range/Units 07:33 09:47 09:47 WBC 26.8 H (3.8-10.6) k/uL Plt Count 503 H (150-450) k/uL Neutrophils # 24.5 H (1.3-7.7) k/uL Lymphocytes # 0.4 L (1.0-4.8) k/uL Monocytes # 1.6 H (0-1.0) k/uL ESR (0-15) mm/hr PT (9.0-12.0) sec INR (<1.2) Chloride 94 L (98-107) mmol/L Carbon Dioxide 34 H (22-30) mmol/L BUN 55 H (9-20) mg/dL Creatinine 1.28 H (0.66-1.25) mg/dL Glucose 210 H (74-99) mg/dL POC Glucose (mg/dL) 177 H (75-99) mg/dL Magnesium (1.6-2.3) mg/dL 12/29/21 12/29/21 12/29/21 Range/Units 09:47 11:34 12:39 WBC (3.8-10.6) k/uL Plt Count (150-450) k/uL Neutrophils # (1.3-7.7) k/uL Lymphocytes # (1.0-4.8) k/uL Monocytes # (0-1.0) k/uL ESR 20 H (0-15) mm/hr PT (9.0-12.0) sec INR (<1.2) Chloride 93 L (98-107) mmol/L Carbon Dioxide 35 H (22-30) mmol/L BUN 56 H (9-20) mg/dL Creatinine 1.29 H (0.66-1.25) mg/dL Glucose 161 H (74-99) mg/dL POC Glucose (mg/dL) 169 H (75-99) mg/dL Magnesium 2.4 H (1.6-2.3) mg/dL Assessment and Plan Plan: Assessment: #1. Acute COPD exacerbation, no evidence of any acute pneumonia. Chest x-ray showing some chronic scarring and atelectatic changes in lung bases bilaterally. No indication for an acute pneumonia. ProBNP level is not elevated. Troponins are all negative. Lactic acid level is at 1.3, the patient has been vaccinated an infected with COVID 19 in the past, clinically improving #2. Shortness of breath secondary to above, improving #3. History of chronic COPD with a previous spirometry shows an FEV1 of 71% of related to maintain on Spiriva and Advair an outpatient basis also has a pro- air rescue inhaler and O2 at 2.5 L per minute nasal cannula #4. Obesity. #5. 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 Chronic lower extremity edema right more than left, questionable DVT #7. Hypertension #8. Hyperlipidemia #9. Recent history of tooth extraction 3 weeks ago Plan: Continue IV steroids Continue Lasix, nebulized bronchodilators We will add Aztreonam and clindamycin Percussed on level is pending IV fluids to KVO Coumadin is on hold Today's INR has been noted I have personally seen and examined the patient, performed the documentation and the assessment and plan as written. Number of minutes spent on the visit: [10] Time with Patient: Less than 30
[2021-12-29] MEDS: AZTREONAM 1 GM in SODIUM CHLORIDE 0.9% 50 ML IVPB SCH ×2 (15:49→23:36)
[2021-12-29 16:42] LABS: Glucose,Whole Blood 161 mg/dL (75-99)
[2021-12-29] MEDS ORDERED: WARFARIN 2.5 MG TAB PO ONE (18:00)
[2021-12-29 20:45] LABS: Glucose,Whole Blood 175 mg/dL (75-99)
[2021-12-29] MEDS ORDERED: HEPARIN SODIUM,PORCINE/PF 5,000 UNIT/0.5 ML SYRINGE SQ SCH (21:00)
[2021-12-29] MEDS: PRAVASTATIN SODIUM 40 MG TAB PO SCH (21:30)
--- NOTE | 2021-12-29 22:21 | P.PN ---
Subjective Progress Note Date: 12/29/21 Principal diagnosis: Acute hypoxemic respiratory failure Acute exacerbation COPD 81-year-old male patient, coming in with worsening shortness of breath. The patient was Hospital as for an acute COPD exacerbation. The patient came into the ED and the patient was having significant respiratory distress and immediately the patient was placed on the BiPAP and currently is off the BiPAP. He is known to have COPD. Last evaluation in our office showed an FEV1 of 71% of predicted. The patient is known to have COPD and the patient remains on a combination of Advair and Spiriva on outpatient basis. Uses Proventil rescue inhaler necessary basis. His been on oxygen at 2.5 L per minute nasal cannula. He had COVID 19 infection back in September 2021. He has been vaccinated and boosted. 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 He apparently has an underlying hypercoagulable state. He has a previous history of DVT of the left lower extremity. Laboratory completed in ED reveals WBC of 14.5, hemoglobin 13.7, platelet count of 462, sodium 135, potassium 2.7, BUN/creatinine of 17/1.0 and blood glucose of 145, INR 2.6 Chest x-ray reveals chronic scarring and atelectasis 12/27/2021, Patient reports some improvement in breathing. The patient is currently off the BiPAP. He was able to use the BiPAP throughout the night yesterday. -- patient remains on a combination of bronchodilators steroids. Doppler of the lower descending was done and the results are negative for DVT. The patient also had an echocardiogram results are still pending for now. -- Patient remains on Lasix 40 mg IV every 12 hours and the dose will be reduced to once a day; DuoNeb nebulized treatments around the clock; IV Solu Medrol 60 mg every 6 hours. PT/INR is subtherapeutic and is placed on hold for today. IV fluids will be cut down to KVO. The patient is on Coumadin and INR is at 5.3. BUN is at 25 and a creatinine of 1.0. The white cell count is 16.4. No chest pain. No altered mentation. No other significant events otherwise over the past 24 hours. 12/28/2021 Patient is seen and evaluated in room at bedside; discussed with nursing staff; reports worsening shortness of breath. The patient is being treated for an acute COPD exacerbation. Vital signs are reviewed and reveal a temperature of 98, pulse 106, respiration 20 and blood pressure 143/73 The patient is also noted to have increased lower extremity edema and the patient is being diuresed with IV Lasix. There is further optimization in the fluid balance. Echocardiogram results are still pending. Note that the Doppler of the lower extremity were negative for DVTs. INR is still elevated and the patient will be given vitamin K today. No signs of any bleeding. INR today is at 7.8 and I'm recommending giving the patient total of 2 mg IV the patient remains on IV Solu Medrol. No new complaints. 12/29/2021 Delayed charting patient evaluated at 1200 today Patient sitting up in the chair with family at bedside. He is tachypneic as well as tachycardia with a heart rate in the 110's. EKG was performed which showed sinus tachycardia with PAC's. Patient was an ateam earlier in the morning and was placed on 100% BiPAP with oxygen saturation in the low 80s. Patient then had a pulse ox of 78% around 1130 today with shortness of breath. D-Dimer WNL <0.17, procalcitonin pending. Lactic acid 1.3. WBC did jump today to 26.8. Could be some steroid effect as well. Was started on IV aztreonam and clindamycin by pulmonary team. Continues on IV lasix daily, as well as updrafts and IV solumedrol. INR today 1.3, potassium 3.6, chloride 93, CO2 35, pO2 56, creatinine 1.29 which is increased from yesterday. blood glucose in the 160s. Echocardiogram taken on the is pending. INR 1.3, will resume coumadin with close monitoring. Review of Systems Constitutional: Denied any fatigue denied any fever. Cardio vascular: denied any chest pain, palpitations Gastrointestinal: denied any nausea, vomiting, diarrhea Pulmonary: Reports shortness of breath at rest, denies cough Neurologic denied any new focal deficits All inpatient medications were reviewed and appropriate changes in these medications as dictated in the interval history and assessment and plan. PHYSICAL EXAMINATION: GENERAL: The patient is alert and oriented x3, in mild respiratory distress during assessment, tachypneic on bipap. Well developed, well nourished. HEENT: Pupils are round and equally reacting to light. EOMI. No scleral icterus. No conjunctival pallor. Normocephalic, atraumatic. No pharyngeal erythema. No thyromegaly. CARDIOVASCULAR: S1 and S2 present. No murmurs, rubs, or gallops. PULMONARY: Coarse lung sounds bilateral posterior all lung gamboa, no crackles or wheezing noted ABDOMEN: Soft, nontender, nondistended, normoactive bowel sounds. No palpable organomegaly. MUSCULOSKELETAL: No joint swelling or deformity. EXTREMITIES: No cyanosis, clubbing, non pitting peripheral edema bilateral. NEUROLOGICAL: Gross neurological examination did not reveal any focal deficits. SKIN: No rashes. Assessment and plan Assessment Acute hypoxemic respiratory failure, on BiPAP 100% FiO2, titrate to keep oxygen saturations greater than 90% per pulmonary recommendations Acute COPD exacerbation, no evidence for pneumonia on x-ray, continue updrafts, IV solumedrol, IV antibiotics ordered today as WBC continues to increase Acute kidney injury mostly prerenal, with poor oral intake, losartan decreased Hypertension on losartan and norvasc Diabetes mellitus type 2, continue current medications History of DVT/PE, no evidence for DVT in bilateral lower venous Doppler, d- dimer <0.17, on coumadin with INR 1.3 today Coumadin Coagulopathy, resolved s/p vitamin k Hyperlipidemia Obesity GI Prophylaxis DVT Prophylaxis: Coumadin Full code Plan Continue IV steroids, updrafts Continue IV lasix IV antibiotics added today by pulmonary team Resume coumadin Continue all other supportive care The impression and plan of care has been dictated by Zora Saleem, Nurse Practitioner as directed. Dr. Becky MD I have performed a history and physical examination and medical decision making of this patient, discussed the same with the dictator, and agree with the dictators assessment and plan as written, documented as a scribe. Based on total visit time, I have performed more than 50% of this visit. Objective - Vital Signs Vital signs: Vital Signs Temp 98.5 F 12/29/21 14:00 Pulse 99 12/29/21 14:00 Resp 27 H 12/29/21 14:00 BP 112/68 12/29/21 14:00 Pulse Ox 98 12/29/21 14:00 Intake & Output 12/28/21 12/29/21 12/29/21 18:59 06:59 18:59 Output Total 500 740 Balance -500 -740 Output: Urine 500 740 Other: Voiding Method Bedside Commode Bedside Commode Urinal Urinal # Voids 1 # Bowel Movements 0 - Labs CBC & Chem 7: 12/29/21 09:47 12/29/21 12:39 Labs: Abnormal Lab Results - Last 24 Hours (Table) 12/28/21 12/28/21 12/29/21 Range/Units 17:00 21:11 05:22 WBC (3.8-10.6) k/uL Plt Count (150-450) k/uL Neutrophils # (1.3-7.7) k/uL Lymphocytes # (1.0-4.8) k/uL Monocytes # (0-1.0) k/uL ESR (0-15) mm/hr PT 13.2 H (9.0-12.0) sec INR 1.3 H (<1.2) Chloride (98-107) mmol/L Carbon Dioxide (22-30) mmol/L BUN (9-20) mg/dL Creatinine (0.66-1.25) mg/dL Glucose (74-99) mg/dL POC Glucose (mg/dL) 161 H 190 H (75-99) mg/dL Magnesium (1.6-2.3) mg/dL 12/29/21 12/29/21 12/29/21 Range/Units 07:33 09:47 09:47 WBC 26.8 H (3.8-10.6) k/uL Plt Count 503 H (150-450) k/uL Neutrophils # 24.5 H (1.3-7.7) k/uL Lymphocytes # 0.4 L (1.0-4.8) k/uL Monocytes # 1.6 H (0-1.0) k/uL ESR (0-15) mm/hr PT (9.0-12.0) sec INR (<1.2) Chloride 94 L (98-107) mmol/L Carbon Dioxide 34 H (22-30) mmol/L BUN 55 H (9-20) mg/dL Creatinine 1.28 H (0.66-1.25) mg/dL Glucose 210 H (74-99) mg/dL POC Glucose (mg/dL) 177 H (75-99) mg/dL Magnesium (1.6-2.3) mg/dL 12/29/21 12/29/21 12/29/21 Range/Units 09:47 11:34 12:39 WBC (3.8-10.6) k/uL Plt Count (150-450) k/uL Neutrophils # (1.3-7.7) k/uL Lymphocytes # (1.0-4.8) k/uL Monocytes # (0-1.0) k/uL ESR 20 H (0-15) mm/hr PT (9.0-12.0) sec INR (<1.2) Chloride 93 L (98-107) mmol/L Carbon Dioxide 35 H (22-30) mmol/L BUN 56 H (9-20) mg/dL Creatinine 1.29 H (0.66-1.25) mg/dL Glucose 161 H (74-99) mg/dL POC Glucose (mg/dL) 169 H (75-99) mg/dL Magnesium 2.4 H (1.6-2.3) mg/dL Assessment and Plan Time with Patient: Greater than 30
[2021-12-30] MEDS: CLINDAMYCIN 300 MG in DEXTROSE 5% IN WATER 50 ML IVPB SCH ×10 (02:43→20:33)
[2021-12-30] MEDS: methylPREDNISolone SOD SUCCI 125 MG/2 ML VIAL IV SCH ×4 (05:48→23:11)
[2021-12-30 06:51] LABS: Glucose,Whole Blood 185 mg/dL (75-99)
[2021-12-30] MEDS: INSULIN ASPART (NovoLOG) 100 UNIT/ML VIAL SQ SCH ×4 (07:31→23:08)
[2021-12-30] MEDS: AZTREONAM 1 GM in SODIUM CHLORIDE 0.9% 50 ML IVPB SCH ×3 (07:31→23:11)
[2021-12-30] MEDS: IPRATROPIUM-ALBUTEROL 3 ML NEB INHALATION SCH ×4 (07:51→20:09)
[2021-12-30 09:29] LABS: Basophils # (A) 0.02 X 10*3/uL (0.00-0.10); Basophils % (A) 0.1 %; Eosinophils # (A) 0 X 10*3/uL (0.04-0.35); Eosinophils % (A) 0 %; HCT 39.6 % (39.6-50.0); HGB 12.5 g/dL (13.0-17.0); Immature Grans, Automated 0.8 %; Lymphocytes # (A) 0.43 X 10*3/uL (0.90-5.00); Lymphocytes % (A) 2.3 %; MCH 29.1 pg (27.0-32.0); MCHC 31.6 g/dL (32.0-37.0); MCV 92.1 fL (80.0-97.0); Monocytes # (A) 1.38 X 10*3/uL (0.20-1.00); Monocytes % (A) 7.4 %; NRBC Per 100 WBC 0 /100 WBCS (0.0-0.0); Neutrophils # (A) 16.58 X 10*3/uL (1.80-7.70); Neutrophils % (A) 89.4 %; Platelet Count 346 X 10*3/uL (140-440); RDW 13.6 % (11.5-14.5); WBC 18.56 X 10*3/uL (4.50-10.00)
[2021-12-30 09:44] LABS: African American GFR (CKD) 65.6 (60.0-200.0); Anion Gap 14.3 mmol/L (10.00-18.00); BUN/Creat Ratio 47.44 Ratio (12.00-20.00); Blood Urea Nitrogen 57.4 mg/dL (9.0-27.0); Calcium 9.1 mg/dL (8.7-10.3); Carbon Dioxide 30.2 mmol/L (20.0-27.5); Non-African American GFR(CKD) 56.6 (60.0-200.0); Potassium 3.8 mmol/L (3.5-5.5)
[2021-12-30 09:46] LABS: INR 1.09 (0.90-1.11); Prothrombin Time 12.3 sec (9.9-11.9)
[2021-12-30] MEDS: amLODIPine 5 MG TAB PO SCH (09:56)
[2021-12-30] MEDS: guaiFENesin 600 MG TABLET.ER PO SCH ×2 (09:56→20:33)
[2021-12-30] MEDS: FUROSEMIDE 10 MG/ML 4 ML VIAL IV SCH (09:56)
[2021-12-30] MEDS: LOSARTAN 50 MG TAB PO SCH (09:57)
[2021-12-30] MEDS: POTASSIUM BICARBONATE/CIT AC 20 MEQ TABLET.EFF PO SCH ×2 (09:57→20:34)
--- NOTE | 2021-12-30 10:24 | P.PN ---
Subjective Progress Note Date: 12/30/21 Principal diagnosis: Shortness of breath On today's evaluation of 12/27/2021, the patient is feeling better. The patient is currently off the BiPAP. He was able to use the BiPAP throughout the night yesterday. For now, the patient is on a combination of bronchodilators steroi ds. Doppler of the lower descending was done and the results are still negative for DVT. The patient also had an echocardiogram results are still pending for now. Meanwhile, the patient is on Lasix 40 mg IV every 12 hours and the dose will be reduced to once a day. He is producing adequate amount of urine output. He remains on DuoNeb nebulized treatments around the clock. He remains on IV Solu Medrol 60 mg every 6 hours. PT/INR is subtherapeutic and is placed on hold for today. IV fluids will be cut down to KVO. The patient is on Coumadin and INR is at 5.3. BUN is at 25 and a creatinine of 1.0. The white cell count is 16.4. No chest pain. No altered mentation. No other significant events otherwise over the past 24 hours. On 12/28/2021, the patient is doing well. The patient is being treated for an acute COPD exacerbation. The patient is also noted to have increased lower extremity edema and the patient is being dialyzed IV Lasix. There is further optimization in the fluid balance. Echocardiogram results are still pending. Note that the Doppler of the lower extremity were negative for DVTs. INR is still elevated and the patient will be given vitamin K today. No signs of any bleeding. INR today is at 7.8 and I'm recommending giving the patient total of 2 mg IV the patient remains on IV Solu Medrol. No new complaints. The patient has been sleeping in recliner as the patient has not been able to sleep in bed for many years. On 12/29/2021 patient seen in follow-up on medical surgical floor. Patient is dyspneic, earlier today she was desaturating on 6 L of high flow nasal cannula to 78%, and he was subsequently placed on BiPAP support and his oxygenation did improve up to 97-98%. He is awake and alert, oriented 3, he sitting up in the chair, his family is at the bedside, he has a congested cough, producing some phlegm, no fever. He describes the phlegm is yellow. No hemoptysis. He remains on once daily dose of Lasix 40 mg, on nebulized bronchodilators and IV steroids. Today's labs have been reviewed, there is been an increase in his white blood cell count up to 26.8, hemoglobin is 14.4, his INR is 1.3, Coumadin remains on hold, d-dimer was negative at less than 0.17, sodium is 138, potassium 3.6, chloride is 93, CO2 is 35, B1 is 56 and creatinine is 1.29. His lactic acid is 1.3. Procalcitonin level has been sent and pending On 12/30/2021 patient seen in follow-up on medical surgical floor. He states he feels a bit better, he was alternating between BiPAP support and high flow oxygen in the last 24 hours, he was still desaturating on high flow nasal cannula and to low 80s. And subsequently he was placed on nonrebreather mask during meals. Currently is on 100% nonrebreather mask, pulse ox is 96%, still quite bronchospastic on physical exam, no rhonchi or rales auscultated. He remains on IV steroids, yesterday we added empiric antibiotics with aztreonam and clindamycin. he is on once daily dose of IV Lasix, no significant swelling in bilateral lower extremities. Yesterday's INR was down to 1.09, Coumadin will be resumed tonight. Today's labs have been reviewed, his white count is improving and is down to 18.56, hemoglobin is 12.5, sodium is 139, potassium is 3.8, chloride is 94, CO2 is 30, BUN is 57, and creatinine is 1.2. Pro- calcitonin level is 0.09. Blood Culture has been negative. Objective - Vital Signs Vital signs: Vital Signs Temp 98.5 F 12/30/21 08:00 Pulse 78 12/30/21 08:01 Resp 18 12/30/21 08:01 BP 112/68 12/30/21 08:00 Pulse Ox 98 12/30/21 08:00 Intake & Output 12/29/21 12/30/21 12/30/21 18:59 06:59 18:59 Output Total 825 Balance -825 Output: Urine 825 Other: Voiding Method Bedside Commode Bedside Commode Urinal Urinal # Voids 3 - Exam GENERAL EXAM: Alert, very pleasant, 81-year-old white male, short of breath, wheezy, sitting up in the chair, on 100% NRB HEAD: Normocephalic/atraumatic. EYES: Normal reaction of pupils, equal size. Conjunctiva pink, sclera white. NOSE: Clear with pink turbinates. THROAT: No erythema or exudates. NECK: No masses, no JVD, no thyroid enlargement, no adenopathy. CHEST: No chest wall deformity. Symmetrical expansion. LUNGS: Equal air entry with diffuse wheezes CVS: Regular rate and rhythm, normal S1 and S2, no gallops, no murmurs, no rubs ABDOMEN: Soft, nontender. No hepatosplenomegaly, normal bowel sounds, no guarding or rigidity. EXTREMITIES: No clubbing, no edema, no cyanosis, 2+ pulses and upper and lower extremities. MUSCULOSKELETAL: Muscle strength and tone normal. SPINE: No scoliosis or deformity SKIN: There is a chronic redness in bilateral lower extremities, with areas of rash CENTRAL NERVOUS SYSTEM: Alert and oriented -3. No focal deficits, tone is n ormal in all 4 extremities. PSYCHIATRIC: Alert and oriented -3. Appropriate affect. Intact judgment and insight. - Labs CBC & Chem 7: 12/30/21 04:19 12/30/21 04:19 Labs: Abnormal Lab Results - Last 24 Hours (Table) 12/29/21 12/29/21 12/29/21 Range/Units 09:47 09:47 11:34 WBC (4.50-10.00) X 10*3/uL RBC (4.40-5.60) X 10*6/uL Hgb (13.0-17.0) g/dL MCHC (32.0-37.0) g/dL Immature Gran # (0.00-0.04) X 10*3/uL Neutrophils # (1.80-7.70) X 10*3/uL Lymphocytes # (0.90-5.00) X 10*3/uL Monocytes # (0.20-1.00) X 10*3/uL Eosinophils # (0.04-0.35) X 10*3/uL ESR 20 H (0-15) mm/hr PT (9.9-11.9) sec Chloride 94 L (98-107) mmol/L Carbon Dioxide 34 H (22-30) mmol/L BUN 55 H (9-20) mg/dL Creatinine 1.28 H (0.66-1.25) mg/dL Est GFR (CKD-EPI)NonAf (60.0-200.0) BUN/Creatinine Ratio (12.00-20.00) Ratio Glucose 210 H (74-99) mg/dL POC Glucose (mg/dL) 169 H (75-99) mg/dL Magnesium (1.6-2.3) mg/dL 12/29/21 12/29/21 12/29/21 Range/Units 12:39 16:32 20:43 WBC (4.50-10.00) X 10*3/uL RBC (4.40-5.60) X 10*6/uL Hgb (13.0-17.0) g/dL MCHC (32.0-37.0) g/dL Immature Gran # (0.00-0.04) X 10*3/uL Neutrophils # (1.80-7.70) X 10*3/uL Lymphocytes # (0.90-5.00) X 10*3/uL Monocytes # (0.20-1.00) X 10*3/uL Eosinophils # (0.04-0.35) X 10*3/uL ESR (0-15) mm/hr PT (9.9-11.9) sec Chloride 93 L (98-107) mmol/L Carbon Dioxide 35 H (22-30) mmol/L BUN 56 H (9-20) mg/dL Creatinine 1.29 H (0.66-1.25) mg/dL Est GFR (CKD-EPI)NonAf (60.0-200.0) BUN/Creatinine Ratio (12.00-20.00) Ratio Glucose 161 H (74-99) mg/dL POC Glucose (mg/dL) 161 H 175 H (75-99) mg/dL Magnesium 2.4 H (1.6-2.3) mg/dL 12/30/21 12/30/21 12/30/21 Range/Units 04:19 04:19 04:19 WBC 18.56 H (4.50-10.00) X 10*3/uL RBC 4.30 L (4.40-5.60) X 10*6/uL Hgb 12.5 L (13.0-17.0) g/dL MCHC 31.6 L (32.0-37.0) g/dL Immature Gran # 0.15 H (0.00-0.04) X 10*3/uL Neutrophils # 16.58 H (1.80-7.70) X 10*3/uL Lymphocytes # 0.43 L (0.90-5.00) X 10*3/uL Monocytes # 1.38 H (0.20-1.00) X 10*3/uL Eosinophils # 0 L (0.04-0.35) X 10*3/uL ESR (0-15) mm/hr PT 12.3 H (9.9-11.9) sec Chloride 94 L (98-107) mmol/L Carbon Dioxide 30.2 H (22-30) mmol/L BUN 57.4 H (9-20) mg/dL Creatinine (0.66-1.25) mg/dL Est GFR (CKD-EPI)NonAf 56.6 L (60.0-200.0) BUN/Creatinine Ratio 47.44 H (12.00-20.00) Ratio Glucose 188 H (74-99) mg/dL POC Glucose (mg/dL) (75-99) mg/dL Magnesium (1.6-2.3) mg/dL 12/30/21 Range/Units 06:49 WBC (4.50-10.00) X 10*3/uL RBC (4.40-5.60) X 10*6/uL Hgb (13.0-17.0) g/dL MCHC (32.0-37.0) g/dL Immature Gran # (0.00-0.04) X 10*3/uL Neutrophils # (1.80-7.70) X 10*3/uL Lymphocytes # (0.90-5.00) X 10*3/uL Monocytes # (0.20-1.00) X 10*3/uL Eosinophils # (0.04-0.35) X 10*3/uL ESR (0-15) mm/hr PT (9.9-11.9) sec Chloride (98-107) mmol/L Carbon Dioxide (22-30) mmol/L BUN (9-20) mg/dL Creatinine (0.66-1.25) mg/dL Est GFR (CKD-EPI)NonAf (60.0-200.0) BUN/Creatinine Ratio (12.00-20.00) Ratio Glucose (74-99) mg/dL POC Glucose (mg/dL) 185 H (75-99) mg/dL Magnesium (1.6-2.3) mg/dL Microbiology - Last 24 Hours (Table) 12/29/21 06:15 Blood Culture - Preliminary Blood No Growth after 24 hours Assessment and Plan Plan: Assessment: #1. Acute COPD exacerbation, no evidence of any acute pneumonia. Chest x-ray showing some chronic scarring and atelectatic changes in lung bases bilaterally. No indication for an acute pneumonia. ProBNP level is not elevated. Troponins are all negative. Lactic acid level is at 1.3, the patient has been vaccinated an infected with COVID 19 in the past, clinically improving #2. Shortness of breath secondary to above, improving #3. History of chronic COPD with a previous spirometry shows an FEV1 of 71% of related to maintain on Spiriva and Advair an outpatient basis also has a pro- air rescue inhaler and O2 at 2.5 L per minute nasal cannula #4. Obesity. #5. 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 Chronic lower extremity edema right more than left, questionable DVT #7. Hypertension #8. Hyperlipidemia #9. Recent history of tooth extraction 3 weeks ago Plan: Patient is still quite bronchospastic and short of breath Alternating between 100% nonrebreather and BiPAP But overall states he is breathing a bit easier Continue IV steroids Continue Lasix, nebulized bronchodilators Continue aztreonam and clindamycin Leukocytosis is improving Procalcitonini level has been noted We'll clinically follow his clinical progress I have personally seen and examined the patient, performed the documentation and the assessment and plan as written. Number of minutes spent on the visit: [10] Time with Patient: Less than 30
[2021-12-30 10:27] LABS: Appearance,Urine Clear (Clear); Bilirubin,Urine Negative (Negative); Blood,Urine Negative (Negative); Color,Urine Yellow; Glucose,Urine (UA) Negative (Negative); Ketones,Urine Negative (Negative); Leukocyte Esterase,Urine Negative (Negative); Nitrite,Urine Negative (Negative); PH, Urine 5.5 (5.0-8.0); Protein,Urine Trace (Negative); Specific Gravity,Urine 1.023 (1.001-1.035); Urobilinogen,Urine <2.0 mg/dL (<2.0)
[2021-12-30 11:12] LABS: Glucose,Whole Blood 265 mg/dL (75-99)
[2021-12-30] MEDS: PANTOPRAZOLE 40 MG TABLET PO SCH (13:33)
--- NOTE | 2021-12-30 15:00 | ECHOF ---
Referral Reason:dyspnea MEASUREMENTS -------- HEIGHT: 170.2 cm WEIGHT: 114.8 kg BP: 150/71 RVIDd: 3.1 cm (< 3.3) IVSd: 1.7 cm (0.6 - 1.1) LVIDd: 4.7 cm (3.9 - 5.3) LVPWd: 1.5 cm (0.6 - 1.1) IVSs: 2.0 cm LVIDs: 3.3 cm LVPWs: 2.1 cm LA Diam: 3.6 cm (2.7 - 3.8) Ao Diam: 3.5 cm (2.0 - 3.7) AV Cusp: 1.5 cm (1.5 - 2.6) MV E Vic: 0.66 m/s MV DecT: 180 ms MV A Vic: 0.88 m/s MV E/A Ratio: 0.74 RAP: 5.00 mmHg RVSP: 43.55 mmHg FINDINGS -------- Resting tachycardia (HR>100bpm). This was a technically difficult study with suboptimal views. The left ventricular size is normal. There is moderate concentric left ventricular hypertrophy. L eft ventricular systolic function is hyperdynamic with an estimated EF of >70%. The right ventricle is normal in size. The left atrium is normal in size. The right atrium is normal in size. 3 ML Lumason used Interatrial and interventricular septum intact. The aortic valve is trileaflet, and appears structurally normal. No aortic stenosis or regurgitation. The mitral valve is normal. Mild tricuspid regurgitation present. There is mild pulmonary hypertension. The right ventricular systolic pressure, as measured by Doppler, is 43.55mmHg. The pulmonic valve was not well visualized. The aortic root size is normal. Normal inferior vena cava with normal inspiratory collapse consistent with estimated right atrial pre ssure of 5 mmHg. There is no pericardial effusion. CONCLUSIONS -------- 1. This was a technically difficult study with suboptimal views. 2. The left ventricular size is normal. 3. There is moderate concentric left ventricular hypertrophy. 4. Left ventricular systolic function is hyperdynamic with an estimated EF of >70%. 5. 3 ML Lumason used 6. Mild tricuspid regurgitation present. 7. There is mild pulmonary hypertension. 8. The right ventricular systolic pressure, as measured by Doppler, is 43.55mmHg. 9. There is no pericardial effusion. METAL POLISHER: Susi Acuna RDCS
[2021-12-30] MEDS: SODIUM CHLORIDE 0.9% 1,000 ML IV SCH (15:59)
[2021-12-30 16:16] LABS: Glucose,Whole Blood 272 mg/dL (75-99)
[2021-12-30] MEDS ORDERED: WARFARIN 2.5 MG TAB PO SCH (18:00)
[2021-12-30] MEDS ORDERED: WARFARIN 2.5 MG TAB PO ONE (18:00)
[2021-12-30] MEDS: PRAVASTATIN SODIUM 40 MG TAB PO SCH (20:33)
[2021-12-30 21:37] LABS: Glucose,Whole Blood 205 mg/dL (75-99)
--- NOTE | 2021-12-30 22:27 | P.PN ---
Subjective Progress Note Date: 12/30/21 Principal diagnosis: Acute hypoxemic respiratory failure Acute exacerbation COPD 81-year-old male patient, coming in with worsening shortness of breath. The patient was Hospital as for an acute COPD exacerbation. The patient came into the ED and the patient was having significant respiratory distress and immediately the patient was placed on the BiPAP and currently is off the BiPAP. He is known to have COPD. Last evaluation in our office showed an FEV1 of 71% of predicted. The patient is known to have COPD and the patient remains on a combination of Advair and Spiriva on outpatient basis. Uses Proventil rescue inhaler necessary basis. His been on oxygen at 2.5 L per minute nasal cannula. He had COVID 19 infection back in September 2021. He has been vaccinated and boosted. 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 He apparently has an underlying hypercoagulable state. He has a previous history of DVT of the left lower extremity. Laboratory completed in ED reveals WBC of 14.5, hemoglobin 13.7, platelet count of 462, sodium 135, potassium 2.7, BUN/creatinine of 17/1.0 and blood glucose of 145, INR 2.6 Chest x-ray reveals chronic scarring and atelectasis 12/27/2021, Patient reports some improvement in breathing. The patient is currently off the BiPAP. He was able to use the BiPAP throughout the night yesterday. -- patient remains on a combination of bronchodilators steroids. Doppler of the lower descending was done and the results are negative for DVT. The patient also had an echocardiogram results are still pending for now. -- Patient remains on Lasix 40 mg IV every 12 hours and the dose will be reduced to once a day; DuoNeb nebulized treatments around the clock; IV Solu Medrol 60 mg every 6 hours. PT/INR is subtherapeutic and is placed on hold for today. IV fluids will be cut down to KVO. The patient is on Coumadin and INR is at 5.3. BUN is at 25 and a creatinine of 1.0. The white cell count is 16.4. No chest pain. No altered mentation. No other significant events otherwise over the past 24 hours. 12/28/2021 Patient is seen and evaluated in room at bedside; discussed with nursing staff; reports worsening shortness of breath. The patient is being treated for an acute COPD exacerbation. Vital signs are reviewed and reveal a temperature of 98, pulse 106, respiration 20 and blood pressure 143/73 The patient is also noted to have increased lower extremity edema and the patient is being diuresed with IV Lasix. There is further optimization in the fluid balance. Echocardiogram results are still pending. Note that the Doppler of the lower extremity were negative for DVTs. INR is still elevated and the patient will be given vitamin K today. No signs of any bleeding. INR today is at 7.8 and I'm recommending giving the patient total of 2 mg IV the patient remains on IV Solu Medrol. No new complaints. 12/29/2021 Delayed charting patient evaluated at 1200 today Patient sitting up in the chair with family at bedside. He is tachypneic as well as tachycardia with a heart rate in the 110's. EKG was performed which showed sinus tachycardia with PAC's. Patient was an ateam earlier in the morning and was placed on 100% BiPAP with oxygen saturation in the low 80s. Patient then had a pulse ox of 78% around 1130 today with shortness of breath. D-Dimer WNL <0.17, procalcitonin pending. Lactic acid 1.3. WBC did jump today to 26.8. Could be some steroid effect as well. Was started on IV aztreonam and clindamycin by pulmonary team. Continues on IV lasix daily, as well as updrafts and IV solumedrol. INR today 1.3, potassium 3.6, chloride 93, CO2 35, pO2 56, creatinine 1.29 which is increased from yesterday. blood glucose in the 160s. Echocardiogram taken on the is pending. INR 1.3, will resume coumadin with close monitoring. 12/30/2021 Patient evaluated today sitting up in chair with family at the bedside. Breathing improved, patient continues on 15L non-rebreather with oxygen saturation 98%. Started on IV antibiotics yesterday. WBC today now 18.56, hgb 12.5. INR today 1.09, continues on coumadin. Sodium 139, CO2 30.2, BUN 1.2, blood glucose in the 205. Procalcitonin 0.09. Urinalysis negative. Patient is afebrile, heart rate 92, blood pressure 143/67. Continues on updrafts, IV solumedrol, IV lasix, Followed closely by pulmonary. Review of Systems Constitutional: Denied any fatigue denied any fever. Cardio vascular: denied any chest pain, palpitations Gastrointestinal: denied any nausea, vomiting, diarrhea Pulmonary: Reports shortness of breath with exertion, denies cough Neurologic denied any new focal deficits All inpatient medications were reviewed and appropriate changes in these medications as dictated in the interval history and assessment and plan. PHYSICAL EXAMINATION: GENERAL: The patient is alert and oriented x3, in mild respiratory distress during assessment, tachypneic on bipap. Well developed, well nourished. HEENT: Pupils are round and equally reacting to light. EOMI. No scleral icterus. No conjunctival pallor. Normocephalic, atraumatic. No pharyngeal erythema. No thyromegaly. CARDIOVASCULAR: S1 and S2 present. No murmurs, rubs, or gallops. PULMONARY: Coarse lung sounds bilateral posterior all lung gamboa, no crackles or wheezing noted. Improved aeration. ABDOMEN: Soft, nontender, nondistended, normoactive bowel sounds. No palpable organomegaly. MUSCULOSKELETAL: No joint swelling or deformity. EXTREMITIES: No cyanosis, clubbing, non pitting peripheral edema bilateral. NEUROLOGICAL: Gross neurological examination did not reveal any focal deficits. SKIN: No rashes. Assessment and plan Assessment Acute hypoxemic respiratory failure, on non rebreather, with BiPAP as needed, titrate to keep oxygen saturations greater than 90% per pulmonary recommendations Acute COPD exacerbation, no evidence for pneumonia on x-ray, continue updrafts, IV solumedrol, IV antibiotics Luekocytosis secondary to above Acute kidney injury mostly prerenal, with poor oral intake, losartan decreased Hypertension on losartan and norvasc Diabetes mellitus type 2, with steroid induced hyperglycemia History of DVT/PE, no evidence for DVT in bilateral lower venous Doppler, d- dimer <0.17, on coumadin with INR 1.3 today Coumadin Coagulopathy, resolved s/p vitamin k Hyperlipidemia Obesity GI Prophylaxis DVT Prophylaxis: Coumadin Full code Plan Continue IV abx, IV steroids, updrafts Continue IV lasix Adjust insulin Continue all other supportive care Repeat labs in AM The impression and plan of care has been dictated by Zora Saleem, Nurse Practitioner as directed. Dr. Becky MD I have performed a history and physical examination and medical decision making of this patient, discussed the same with the dictator, and agree with the dictators assessment and plan as written, documented as a scribe. Based on total visit time, I have performed more than 50% of this visit. Objective - Vital Signs Vital signs: Vital Signs Temp 98.5 F 12/30/21 08:00 Pulse 96 12/30/21 12:48 Resp 18 12/30/21 08:01 BP 112/68 12/30/21 08:00 Pulse Ox 98 12/30/21 08:00 Intake & Output 12/29/21 12/30/21 12/30/21 18:59 06:59 18:59 Output Total 825 Balance -825 Output: Urine 825 Other: Voiding Method Bedside Commode Bedside Commode Urinal Urinal # Voids 3 - Labs CBC & Chem 7: 12/30/21 04:19 12/30/21 04:19 Labs: Abnormal Lab Results - Last 24 Hours (Table) 12/29/21 12/29/21 12/29/21 Range/Units 09:47 16:32 20:43 WBC (4.50-10.00) X 10*3/uL RBC (4.40-5.60) X 10*6/uL Hgb (13.0-17.0) g/dL MCHC (32.0-37.0) g/dL Immature Gran # (0.00-0.04) X 10*3/uL Neutrophils # (1.80-7.70) X 10*3/uL Lymphocytes # (0.90-5.00) X 10*3/uL Monocytes # (0.20-1.00) X 10*3/uL Eosinophils # (0.04-0.35) X 10*3/uL ESR 20 H (0-15) mm/hr PT (9.9-11.9) sec Chloride (96-109) mmol/L Carbon Dioxide (20.0-27.5) mmol/L BUN (9.0-27.0) mg/dL Est GFR (CKD-EPI)NonAf (60.0-200.0) BUN/Creatinine Ratio (12.00-20.00) Ratio Glucose (70-110) mg/dL POC Glucose (mg/dL) 161 H 175 H (75-99) mg/dL Urine Protein (Negative) 12/30/21 12/30/21 12/30/21 Range/Units 04:19 04:19 04:19 WBC 18.56 H (4.50-10.00) X 10*3/uL RBC 4.30 L (4.40-5.60) X 10*6/uL Hgb 12.5 L (13.0-17.0) g/dL MCHC 31.6 L (32.0-37.0) g/dL Immature Gran # 0.15 H (0.00-0.04) X 10*3/uL Neutrophils # 16.58 H (1.80-7.70) X 10*3/uL Lymphocytes # 0.43 L (0.90-5.00) X 10*3/uL Monocytes # 1.38 H (0.20-1.00) X 10*3/uL Eosinophils # 0 L (0.04-0.35) X 10*3/uL ESR (0-15) mm/hr PT 12.3 H (9.9-11.9) sec Chloride 94 L (96-109) mmol/L Carbon Dioxide 30.2 H (20.0-27.5) mmol/L BUN 57.4 H (9.0-27.0) mg/dL Est GFR (CKD-EPI)NonAf 56.6 L (60.0-200.0) BUN/Creatinine Ratio 47.44 H (12.00-20.00) Ratio Glucose 188 H (70-110) mg/dL POC Glucose (mg/dL) (75-99) mg/dL Urine Protein (Negative) 12/30/21 12/30/21 12/30/21 Range/Units 06:49 09:50 11:11 WBC (4.50-10.00) X 10*3/uL RBC (4.40-5.60) X 10*6/uL Hgb (13.0-17.0) g/dL MCHC (32.0-37.0) g/dL Immature Gran # (0.00-0.04) X 10*3/uL Neutrophils # (1.80-7.70) X 10*3/uL Lymphocytes # (0.90-5.00) X 10*3/uL Monocytes # (0.20-1.00) X 10*3/uL Eosinophils # (0.04-0.35) X 10*3/uL ESR (0-15) mm/hr PT (9.9-11.9) sec Chloride (96-109) mmol/L Carbon Dioxide (20.0-27.5) mmol/L BUN (9.0-27.0) mg/dL Est GFR (CKD-EPI)NonAf (60.0-200.0) BUN/Creatinine Ratio (12.00-20.00) Ratio Glucose (70-110) mg/dL POC Glucose (mg/dL) 185 H 265 H (75-99) mg/dL Urine Protein Trace H (Negative) Microbiology - Last 24 Hours (Table) 12/29/21 06:15 Blood Culture - Preliminary Blood No Growth after 24 hours Assessment and Plan Time with Patient: Less than 30
[2021-12-30] MEDS: INSULIN DETEMIR (LEVEMIR) 100 UNIT/ML SYR SQ SCH (23:08)
[2021-12-31] MEDS: CLINDAMYCIN 300 MG in DEXTROSE 5% IN WATER 50 ML IVPB SCH ×8 (05:18→19:57)
[2021-12-31] MEDS: methylPREDNISolone SOD SUCCI 125 MG/2 ML VIAL IV SCH ×4 (05:18→23:48)
[2021-12-31 07:21] LABS: INR 1.4 (<1.2); Prothrombin Time 14.3 sec (9.0-12.0)
[2021-12-31 07:23] LABS: Glucose,Whole Blood 158 mg/dL (75-99)
[2021-12-31] MEDS: INSULIN ASPART (NovoLOG) 100 UNIT/ML VIAL SQ SCH ×7 (07:47→20:52)
[2021-12-31] MEDS: AZTREONAM 1 GM in SODIUM CHLORIDE 0.9% 50 ML IVPB SCH ×3 (07:49→23:48)
[2021-12-31] MEDS: IPRATROPIUM-ALBUTEROL 3 ML NEB INHALATION SCH ×4 (08:09→20:37)
[2021-12-31] MEDS: guaiFENesin 600 MG TABLET.ER PO SCH (09:00)
[2021-12-31 09:37] LABS: Basophils # (A) 0.01 X 10*3/uL (0.00-0.10); Basophils % (A) 0.1 %; Eosinophils # (A) 0 X 10*3/uL (0.04-0.35); Eosinophils % (A) 0 %; HCT 40.3 % (39.6-50.0); HGB 12.7 g/dL (13.0-17.0); Immature Grans, Automated 0.6 %; Lymphocytes # (A) 0.46 X 10*3/uL (0.90-5.00); Lymphocytes % (A) 3.3 %; MCH 28.7 pg (27.0-32.0); MCHC 31.5 g/dL (32.0-37.0); Monocytes # (A) 0.93 X 10*3/uL (0.20-1.00); Monocytes % (A) 6.6 %; NRBC Per 100 WBC 0 /100 WBCS (0.0-0.0); Neutrophils # (A) 12.55 X 10*3/uL (1.80-7.70); Neutrophils % (A) 89.4 %; Platelet Count 348 X 10*3/uL (140-440); RBC 4.43 X 10*6/uL (4.40-5.60); RDW 13.1 % (11.5-14.5); WBC 14.04 X 10*3/uL (4.50-10.00)
[2021-12-31 09:49] LABS: African American GFR (CKD) 73.6 (60.0-200.0); Anion Gap 14.6 mmol/L (10.00-18.00); BUN/Creat Ratio 52.45 Ratio (12.00-20.00); Blood Urea Nitrogen 57.7 mg/dL (9.0-27.0); Carbon Dioxide 32.4 mmol/L (20.0-27.5); Non-African American GFR(CKD) 63.5 (60.0-200.0); Potassium 3.7 mmol/L (3.5-5.5)
[2021-12-31] MEDS: amLODIPine 5 MG TAB PO SCH (10:30)
[2021-12-31] MEDS: POTASSIUM BICARBONATE/CIT AC 20 MEQ TABLET.EFF PO SCH ×2 (10:30→19:58)
[2021-12-31] MEDS: FUROSEMIDE 10 MG/ML 4 ML VIAL IV SCH (10:30)
[2021-12-31] MEDS: LOSARTAN 50 MG TAB PO SCH (10:30)
[2021-12-31 11:07] LABS: Glucose,Whole Blood 181 mg/dL (75-99)
--- NOTE | 2021-12-31 11:40 | P.PN ---
Subjective Progress Note Date: 12/31/21 The patient is seen today 12/31/2021 in follow-up on the regular medical floor. He is currently sitting up in a chair at the bedside. Awake and alert in no acute distress. Currently on BiPAP 16/80 and 70% FiO2. He is alternating between that and a nonrebreather mask. He states he is breathing easier today compared to yesterday. Blood culture reveals no growth. White count 14.0. Hemoglobin 12.7. Platelet count 348. Sodium 142. Potassium 3.7. Creatinine 1.1. INR 1.4. Glucose 164. He is anticoagulated with warfarin. Continued on bronchodilators, IV Solu-Medrol, IV diuretics. He is on antibiotics in the form of Azactam. Objective - Vital Signs Vital signs: Vital Signs Temp 97.3 F L 12/31/21 07:12 Pulse 88 12/31/21 08:31 Resp 20 12/31/21 07:12 BP 135/94 12/31/21 07:12 Pulse Ox 98 12/31/21 07:12 Intake & Output 12/30/21 12/31/21 12/31/21 18:59 06:59 18:59 Other: Voiding Method Bedside Commode # Voids 2 - Exam GENERAL EXAM: Alert, obese 81-year-old male patient, on BiPAP 16/870% FiO2, up in a chair at the bedside comfortable in no apparent distress. HEAD: Normocephalic. EYES: Normal reaction of pupils, equal size. NOSE: Clear with pink turbinates. THROAT: No erythema or exudates. NECK: No masses, no JVD. CHEST: No chest wall deformity. LUNGS: Equal air entry with bilateral scattered rhonchi, end expiratory wheeze. CVS: S1 and S2 normal with no audible murmur, regular rhythm. ABDOMEN: No hepatosplenomegaly, normal bowel sounds, no guarding or rigidity. SPINE: No scoliosis or deformity SKIN: No rashes CENTRAL NERVOUS SYSTEM: No focal deficits, tone is normal in all 4 extremities. EXTREMITIES: There is 1+ peripheral edema. No clubbing, no cyanosis. Peripheral pulses are intact. - Labs CBC & Chem 7: 12/31/21 06:18 12/31/21 06:18 Labs: Abnormal Lab Results - Last 24 Hours (Table) 12/30/21 12/30/21 12/31/21 Range/Units 16:15 21:34 06:18 WBC (4.50-10.00) X 10*3/uL Hgb (13.0-17.0) g/dL MCHC (32.0-37.0) g/dL Immature Gran # (0.00-0.04) X 10*3/uL Neutrophils # (1.80-7.70) X 10*3/uL Lymphocytes # (0.90-5.00) X 10*3/uL Eosinophils # (0.04-0.35) X 10*3/uL PT 14.3 H (9.0-12.0) sec INR 1.4 H (<1.2) Chloride (96-109) mmol/L Carbon Dioxide (20.0-27.5) mmol/L BUN (9.0-27.0) mg/dL BUN/Creatinine Ratio (12.00-20.00) Ratio Glucose (70-110) mg/dL POC Glucose (mg/dL) 272 H 205 H (75-99) mg/dL 12/31/21 12/31/21 12/31/21 Range/Units 06:18 06:18 07:22 WBC 14.04 H (4.50-10.00) X 10*3/uL Hgb 12.7 L (13.0-17.0) g/dL MCHC 31.5 L (32.0-37.0) g/dL Immature Gran # 0.09 H (0.00-0.04) X 10*3/uL Neutrophils # 12.55 H (1.80-7.70) X 10*3/uL Lymphocytes # 0.46 L (0.90-5.00) X 10*3/uL Eosinophils # 0 L (0.04-0.35) X 10*3/uL PT (9.0-12.0) sec INR (<1.2) Chloride 95 L (96-109) mmol/L Carbon Dioxide 32.4 H (20.0-27.5) mmol/L BUN 57.7 H (9.0-27.0) mg/dL BUN/Creatinine Ratio 52.45 H (12.00-20.00) Ratio Glucose 164 H (70-110) mg/dL POC Glucose (mg/dL) 158 H (75-99) mg/dL 12/31/21 Range/Units 11:05 WBC (4.50-10.00) X 10*3/uL Hgb (13.0-17.0) g/dL MCHC (32.0-37.0) g/dL Immature Gran # (0.00-0.04) X 10*3/uL Neutrophils # (1.80-7.70) X 10*3/uL Lymphocytes # (0.90-5.00) X 10*3/uL Eosinophils # (0.04-0.35) X 10*3/uL PT (9.0-12.0) sec INR (<1.2) Chloride (96-109) mmol/L Carbon Dioxide (20.0-27.5) mmol/L BUN (9.0-27.0) mg/dL BUN/Creatinine Ratio (12.00-20.00) Ratio Glucose (70-110) mg/dL POC Glucose (mg/dL) 181 H (75-99) mg/dL Microbiology - Last 24 Hours (Table) 12/29/21 06:15 Blood Culture - Preliminary Blood No Growth after 48 hours Assessment and Plan Assessment: 1 Acute COPD exacerbation, no evidence of any acute pneumonia. Chest x-ray showing some chronic scarring and atelectatic changes in lung bases bilaterally. No indication for an acute pneumonia. Pro-calcitonin 0.09. ProBNP level is not elevated. Troponins are all negative. Lactic acid level 1.3, the patient has been vaccinated an infected with COVID 19 in the past, clinically improving 2 Shortness of breath secondary to above, improving 3 History of chronic COPD with a previous spirometry shows an FEV1 of 71% of related to maintain on Spiriva and Advair an outpatient basis also has a pro- air rescue inhaler and O2 at 2.5 L per minute nasal cannula 4 Obesity. 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 We will continue to follow I have personally seen and examined the patient, performed the documentation and the assessment and plan as written. Number of minutes spent on the visit: 10.
[2021-12-31] MEDS: guaiFENesin SYRUP 100MG/5ML 200 MG/10 ML CUP PO SCH ×3 (12:40→23:49)
--- NOTE | 2021-12-31 15:14 | P.PN ---
Subjective Progress Note Date: 12/31/21 Principal diagnosis: Acute hypoxemic respiratory failure Acute exacerbation COPD 81-year-old male patient, coming in with worsening shortness of breath. The patient was Hospital as for an acute COPD exacerbation. The patient came into the ED and the patient was having significant respiratory distress and immediately the patient was placed on the BiPAP and currently is off the BiPAP. He is known to have COPD. Last evaluation in our office showed an FEV1 of 71% of predicted. The patient is known to have COPD and the patient remains on a combination of Advair and Spiriva on outpatient basis. Uses Proventil rescue inhaler necessary basis. His been on oxygen at 2.5 L per minute nasal cannula. He had COVID 19 infection back in September 2021. He has been vaccinated and boosted. 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 He apparently has an underlying hypercoagulable state. He has a previous history of DVT of the left lower extremity. Laboratory completed in ED reveals WBC of 14.5, hemoglobin 13.7, platelet count of 462, sodium 135, potassium 2.7, BUN/creatinine of 17/1.0 and blood glucose of 145, INR 2.6 Chest x-ray reveals chronic scarring and atelectasis 12/27/2021, Patient reports some improvement in breathing. The patient is currently off the BiPAP. He was able to use the BiPAP throughout the night yesterday. -- patient remains on a combination of bronchodilators steroids. Doppler of the lower descending was done and the results are negative for DVT. The patient also had an echocardiogram results are still pending for now. -- Patient remains on Lasix 40 mg IV every 12 hours and the dose will be reduced to once a day; DuoNeb nebulized treatments around the clock; IV Solu Medrol 60 mg every 6 hours. PT/INR is subtherapeutic and is placed on hold for today. IV fluids will be cut down to KVO. The patient is on Coumadin and INR is at 5.3. BUN is at 25 and a creatinine of 1.0. The white cell count is 16.4. No chest pain. No altered mentation. No other significant events otherwise over the past 24 hours. 12/28/2021 Patient is seen and evaluated in room at bedside; discussed with nursing staff; reports worsening shortness of breath. The patient is being treated for an acute COPD exacerbation. Vital signs are reviewed and reveal a temperature of 98, pulse 106, respiration 20 and blood pressure 143/73 The patient is also noted to have increased lower extremity edema and the patient is being diuresed with IV Lasix. There is further optimization in the fluid balance. Echocardiogram results are still pending. Note that the Doppler of the lower extremity were negative for DVTs. INR is still elevated and the patient will be given vitamin K today. No signs of any bleeding. INR today is at 7.8 and I'm recommending giving the patient total of 2 mg IV the patient remains on IV Solu Medrol. No new complaints. 12/29/2021 Delayed charting patient evaluated at 1200 today Patient sitting up in the chair with family at bedside. He is tachypneic as well as tachycardia with a heart rate in the 110's. EKG was performed which showed sinus tachycardia with PAC's. Patient was an ateam earlier in the morning and was placed on 100% BiPAP with oxygen saturation in the low 80s. Patient then had a pulse ox of 78% around 1130 today with shortness of breath. D-Dimer WNL <0.17, procalcitonin pending. Lactic acid 1.3. WBC did jump today to 26.8. Could be some steroid effect as well. Was started on IV aztreonam and clindamycin by pulmonary team. Continues on IV lasix daily, as well as updrafts and IV solumedrol. INR today 1.3, potassium 3.6, chloride 93, CO2 35, pO2 56, creatinine 1.29 which is increased from yesterday. blood glucose in the 160s. Echocardiogram taken on the is pending. INR 1.3, will resume coumadin with close monitoring. 12/30/2021 Patient evaluated today sitting up in chair with family at the bedside. Breathing improved, patient continues on 15L non-rebreather with oxygen saturation 98%. Started on IV antibiotics yesterday. WBC today now 18.56, hgb 12.5. INR today 1.09, continues on coumadin. Sodium 139, CO2 30.2, BUN 1.2, blood glucose in the 205. Procalcitonin 0.09. Urinalysis negative. Patient is afebrile, heart rate 92, blood pressure 143/67. Continues on updrafts, IV solumedrol, IV lasix, Followed closely by pulmonary. 12/31/2021 Patient sitting up in chair today. Continues on IV antibiotics, WBC improved to 14.04 today. INR 1.4. BUN 57, creat 1.1. Patient is less short of breath today, however now with productive cough with thick salguero/brown sputum. He has been able to give sample which is pending. Patient has been using BiPAP 70% FiO2, NRB, and seen today wearing 13 HF cannula with saturation of 94%. Afebrile, blood pressure 135/69. Continues on updrafts, IV steroids. Review of Systems Constitutional: Denied any fatigue denied any fever. Cardio vascular: denied any chest pain, palpitations Gastrointestinal: denied any nausea, vomiting, diarrhea Pulmonary: Reports shortness of breath with exertion, denies cough Neurologic denied any new focal deficits All inpatient medications were reviewed and appropriate changes in these m edications as dictated in the interval history and assessment and plan. PHYSICAL EXAMINATION: GENERAL: The patient is alert and oriented x3, in mild respiratory distress during assessment, tachypneic on bipap. Well developed, well nourished. HEENT: Pupils are round and equally reacting to light. EOMI. No scleral icterus. No conjunctival pallor. Normocephalic, atraumatic. No pharyngeal erythema. No thyromegaly. CARDIOVASCULAR: S1 and S2 present. No murmurs, rubs, or gallops. PULMONARY: Coarse lung sounds bilateral posterior all lung gamboa, no crackles or wheezing noted. Improved aeration. ABDOMEN: Soft, nontender, nondistended, normoactive bowel sounds. No palpable organomegaly. MUSCULOSKELETAL: No joint swelling or deformity. EXTREMITIES: No cyanosis, clubbing, non pitting peripheral edema bilateral. NEUROLOGICAL: Gross neurological examination did not reveal any focal deficits. SKIN: No rashes. Assessment and plan Assessment Acute hypoxemic respiratory failure, on non rebreather, with BiPAP as needed, titrate to keep oxygen saturations greater than 90% per pulmonary re commendations Acute COPD exacerbation, no evidence for pneumonia on x-ray, continue updrafts, IV solumedrol, IV antibiotics Luekocytosis secondary to above Acute kidney injury mostly prerenal, with poor oral intake, losartan decreased Hypertension on losartan and norvasc Diabetes mellitus type 2, with steroid induced hyperglycemia History of DVT/PE, no evidence for DVT in bilateral lower venous Doppler, d- dimer <0.17, on coumadin with INR 1.4 today Coumadin Coagulopathy, resolved s/p vitamin k Hyperlipidemia Obesity GI Prophylaxis: Protonix DVT Prophylaxis: Coumadin Full code Plan Continue IV abx, IV steroids, updrafts Continue IV lasix Continue all other supportive care Repeat labs in AM The impression and plan of care has been dictated by Zora Saleem, Nurse Practitioner as directed. Dr. Becky MD I have performed a history and physical examination and medical decision making of this patient, discussed the same with the dictator, and agree with the dictators assessment and plan as written, documented as a scribe. Based on total visit time, I have performed more than 50% of this visit. Objective - Vital Signs Vital signs: Vital Signs Temp 97.3 F L 12/31/21 07:12 Pulse 85 12/31/21 12:20 Resp 20 12/31/21 07:12 BP 135/94 12/31/21 07:12 Pulse Ox 92 L 12/31/21 10:00 Intake & Output 12/30/21 12/31/21 12/31/21 18:59 06:59 18:59 Other: Voiding Method Bedside Commode # Voids 2 - Labs CBC & Chem 7: 12/31/21 06:18 12/31/21 06:18 Labs: Abnormal Lab Results - Last 24 Hours (Table) 12/30/21 12/30/21 12/31/21 Range/Units 16:15 21:34 06:18 WBC (4.50-10.00) X 10*3/uL Hgb (13.0-17.0) g/dL MCHC (32.0-37.0) g/dL Immature Gran # (0.00-0.04) X 10*3/uL Neutrophils # (1.80-7.70) X 10*3/uL Lymphocytes # (0.90-5.00) X 10*3/uL Eosinophils # (0.04-0.35) X 10*3/uL PT 14.3 H (9.0-12.0) sec INR 1.4 H (<1.2) Chloride (96-109) mmol/L Carbon Dioxide (20.0-27.5) mmol/L BUN (9.0-27.0) mg/dL BUN/Creatinine Ratio (12.00-20.00) Ratio Glucose (70-110) mg/dL POC Glucose (mg/dL) 272 H 205 H (75-99) mg/dL 12/31/21 12/31/21 12/31/21 Range/Units 06:18 06:18 07:22 WBC 14.04 H (4.50-10.00) X 10*3/uL Hgb 12.7 L (13.0-17.0) g/dL MCHC 31.5 L (32.0-37.0) g/dL Immature Gran # 0.09 H (0.00-0.04) X 10*3/uL Neutrophils # 12.55 H (1.80-7.70) X 10*3/uL Lymphocytes # 0.46 L (0.90-5.00) X 10*3/uL Eosinophils # 0 L (0.04-0.35) X 10*3/uL PT (9.0-12.0) sec INR (<1.2) Chloride 95 L (96-109) mmol/L Carbon Dioxide 32.4 H (20.0-27.5) mmol/L BUN 57.7 H (9.0-27.0) mg/dL BUN/Creatinine Ratio 52.45 H (12.00-20.00) Ratio Glucose 164 H (70-110) mg/dL POC Glucose (mg/dL) 158 H (75-99) mg/dL 12/31/21 Range/Units 11:05 WBC (4.50-10.00) X 10*3/uL Hgb (13.0-17.0) g/dL MCHC (32.0-37.0) g/dL Immature Gran # (0.00-0.04) X 10*3/uL Neutrophils # (1.80-7.70) X 10*3/uL Lymphocytes # (0.90-5.00) X 10*3/uL Eosinophils # (0.04-0.35) X 10*3/uL PT (9.0-12.0) sec INR (<1.2) Chloride (96-109) mmol/L Carbon Dioxide (20.0-27.5) mmol/L BUN (9.0-27.0) mg/dL BUN/Creatinine Ratio (12.00-20.00) Ratio Glucose (70-110) mg/dL POC Glucose (mg/dL) 181 H (75-99) mg/dL Microbiology - Last 24 Hours (Table) 12/29/21 06:15 Blood Culture - Preliminary Blood No Growth after 48 hours Assessment and Plan Time with Patient: Less than 30
[2021-12-31] MEDS: SODIUM CHLORIDE 0.9% 1,000 ML IV SCH (16:47)
[2021-12-31 16:50] LABS: Glucose,Whole Blood 126 mg/dL (75-99)
[2021-12-31] MEDS ORDERED: WARFARIN 5 MG TAB PO ONE (18:00)
[2021-12-31] MEDS: PRAVASTATIN SODIUM 40 MG TAB PO SCH (19:58)
[2021-12-31 20:15] LABS: Glucose,Whole Blood 177 mg/dL (75-99)
[2021-12-31] MEDS: INSULIN DETEMIR (LEVEMIR) 100 UNIT/ML SYR SQ SCH (20:52)
[2022-01-01] MEDS: CLINDAMYCIN 300 MG in DEXTROSE 5% IN WATER 50 ML IVPB SCH ×8 (03:09→19:44)
[2022-01-01] MEDS: methylPREDNISolone SOD SUCCI 125 MG/2 ML VIAL IV SCH ×3 (05:14→17:43)
[2022-01-01 06:38] LABS: INR 1.7 (<1.2); Prothrombin Time 17.1 sec (9.0-12.0)
[2022-01-01 07:20] LABS: Glucose,Whole Blood 151 mg/dL (75-99)
[2022-01-01] MEDS: INSULIN ASPART (NovoLOG) 100 UNIT/ML VIAL SQ SCH ×7 (07:43→21:49)
[2022-01-01] MEDS: guaiFENesin SYRUP 100MG/5ML 200 MG/10 ML CUP PO SCH ×2 (07:45→15:06)
[2022-01-01] MEDS: AZTREONAM 1 GM in SODIUM CHLORIDE 0.9% 50 ML IVPB SCH ×2 (07:45→15:06)
--- NOTE | 2022-01-01 08:08 | XR ---
EXAMINATION TYPE: XR chest 1V portable DATE OF EXAM: 01/01/2022 COMPARISON: X-ray dated 12/29/2021 HISTORY: Pneumonia TECHNIQUE: Single frontal view of the chest is obtained. FINDINGS: Persistent atelectasis/infiltration in the lung bases without interval progression. Suspected small b ilateral pleural effusions, stable. Grossly unremarkable remainder of the lungs. Unchanged cardiomediastinal silhouette and bony thoracic cage. IMPRESSION: No significant interval change as described above.
[2022-01-01] MEDS: IPRATROPIUM-ALBUTEROL 3 ML NEB INHALATION SCH ×4 (08:25→21:11)
[2022-01-01 09:05] LABS: Basophils # (A) 0.01 X 10*3/uL (0.00-0.10); Basophils % (A) 0.1 %; Eosinophils # (A) 0.02 X 10*3/uL (0.04-0.35); Eosinophils % (A) 0.2 %; HCT 37.4 % (39.6-50.0); Immature Grans, Automated 0.9 %; Lymphocytes # (A) 0.49 X 10*3/uL (0.90-5.00); Lymphocytes % (A) 4.3 %; MCH 29.1 pg (27.0-32.0); MCHC 32.1 g/dL (32.0-37.0); MCV 90.6 fL (80.0-97.0); Mean Platelet Volume 10.1 fL (9.5-12.2); Monocytes # (A) 0.64 X 10*3/uL (0.20-1.00); Monocytes % (A) 5.7 %; NRBC Per 100 WBC 0 /100 WBCS (0.0-0.0); Neutrophils # (A) 10.05 X 10*3/uL (1.80-7.70); Neutrophils % (A) 88.8 %; Platelet Count 314 X 10*3/uL (140-440); RBC 4.13 X 10*6/uL (4.40-5.60); RDW 12.8 % (11.5-14.5); WBC 11.31 X 10*3/uL (4.50-10.00)
[2022-01-01] MEDS: LOSARTAN 50 MG TAB PO SCH (09:06)
[2022-01-01] MEDS: amLODIPine 5 MG TAB PO SCH (09:07)
[2022-01-01] MEDS: POTASSIUM BICARBONATE/CIT AC 20 MEQ TABLET.EFF PO SCH ×2 (09:07→19:45)
[2022-01-01] MEDS: FUROSEMIDE 10 MG/ML 4 ML VIAL IV SCH ×2 (09:07→19:45)
[2022-01-01 09:23] LABS: African American GFR (CKD) 93.8 (60.0-200.0); Anion Gap 13.1 mmol/L (10.00-18.00); BUN/Creat Ratio 54.89 Ratio (12.00-20.00); Blood Urea Nitrogen 49.4 mg/dL (9.0-27.0); Calcium 8.5 mg/dL (8.7-10.3); Carbon Dioxide 30.9 mmol/L (20.0-27.5); Non-African American GFR(CKD) 80.9 (60.0-200.0); Potassium 3.5 mmol/L (3.5-5.5)
[2022-01-01] MEDS ORDERED: POTASSIUM BICARBONATE/CIT AC 20 MEQ TABLET.EFF PO ONE (09:34)
[2022-01-01 12:06] LABS: Glucose,Whole Blood 183 mg/dL (75-99)
--- NOTE | 2022-01-01 12:42 | P.PN ---
Subjective Progress Note Date: 01/01/22 Principal diagnosis: Acute hypoxemic respiratory failure Acute exacerbation COPD 81-year-old male patient, coming in with worsening shortness of breath. The patient was Hospital as for an acute COPD exacerbation. The patient came into the ED and the patient was having significant respiratory distress and immediately the patient was placed on the BiPAP and currently is off the BiPAP. He is known to have COPD. Last evaluation in our office showed an FEV1 of 71% of predicted. The patient is known to have COPD and the patient remains on a combination of Advair and Spiriva on outpatient basis. Uses Proventil rescue inhaler necessary basis. His been on oxygen at 2.5 L per minute nasal cannula. He had COVID 19 infection back in September 2021. He has been vaccinated and boosted. 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 He apparently has an underlying hypercoagulable state. He has a previous history of DVT of the left lower extremity. Laboratory completed in ED reveals WBC of 14.5, hemoglobin 13.7, platelet count of 462, sodium 135, potassium 2.7, BUN/creatinine of 17/1.0 and blood glucose of 145, INR 2.6 Chest x-ray reveals chronic scarring and atelectasis 12/27/2021, Patient reports some improvement in breathing. The patient is currently off the BiPAP. He was able to use the BiPAP throughout the night yesterday. -- patient remains on a combination of bronchodilators steroids. Doppler of the lower descending was done and the results are negative for DVT. The patient also had an echocardiogram results are still pending for now. -- Patient remains on Lasix 40 mg IV every 12 hours and the dose will be reduced to once a day; DuoNeb nebulized treatments around the clock; IV Solu Medrol 60 mg every 6 hours. PT/INR is subtherapeutic and is placed on hold for today. IV fluids will be cut down to KVO. The patient is on Coumadin and INR is at 5.3. BUN is at 25 and a creatinine of 1.0. The white cell count is 16.4. No chest pain. No altered mentation. No other significant events otherwise over the past 24 hours. 12/28/2021 Patient is seen and evaluated in room at bedside; discussed with nursing staff; reports worsening shortness of breath. The patient is being treated for an acute COPD exacerbation. Vital signs are reviewed and reveal a temperature of 98, pulse 106, respiration 20 and blood pressure 143/73 The patient is also noted to have increased lower extremity edema and the patient is being diuresed with IV Lasix. There is further optimization in the fluid balance. Echocardiogram results are still pending. Note that the Doppler of the lower extremity were negative for DVTs. INR is still elevated and the patient will be given vitamin K today. No signs of any bleeding. INR today is at 7.8 and I'm recommending giving the patient total of 2 mg IV the patient remains on IV Solu Medrol. No new complaints. 12/29/2021 Delayed charting patient evaluated at 1200 today Patient sitting up in the chair with family at bedside. He is tachypneic as well as tachycardia with a heart rate in the 110's. EKG was performed which showed sinus tachycardia with PAC's. Patient was an ateam earlier in the morning and was placed on 100% BiPAP with oxygen saturation in the low 80s. Patient then had a pulse ox of 78% around 1130 today with shortness of breath. D-Dimer WNL <0.17, procalcitonin pending. Lactic acid 1.3. WBC did jump today to 26.8. Could be some steroid effect as well. Was started on IV aztreonam and clindamycin by pulmonary team. Continues on IV lasix daily, as well as updrafts and IV solumedrol. INR today 1.3, potassium 3.6, chloride 93, CO2 35, pO2 56, creatinine 1.29 which is increased from yesterday. blood glucose in the 160s. Echocardiogram taken on the is pending. INR 1.3, will resume coumadin with close monitoring. 12/30/2021 Patient evaluated today sitting up in chair with family at the bedside. Breathing improved, patient continues on 15L non-rebreather with oxygen saturation 98%. Started on IV antibiotics yesterday. WBC today now 18.56, hgb 12.5. INR today 1.09, continues on coumadin. Sodium 139, CO2 30.2, BUN 1.2, blood glucose in the 205. Procalcitonin 0.09. Urinalysis negative. Patient is afebrile, heart rate 92, blood pressure 143/67. Continues on updrafts, IV solumedrol, IV lasix, Followed closely by pulmonary. 12/31/2021 Patient sitting up in chair today. Continues on IV antibiotics, WBC improved to 14.04 today. INR 1.4. BUN 57, creat 1.1. Patient is less short of breath today, however now with productive cough with thick salguero/brown sputum. He has been able to give sample which is pending. Patient has been using BiPAP 70% FiO2, NRB, and seen today wearing 13 HF cannula with saturation of 94%. Afebrile, blood pressure 135/69. Continues on updrafts, IV steroids. 01/01/2022 Patient continues to improve today, weaned down to 11 L HF cannula states able to take deeper breaths and ambulate some in the room today. Did not wear BiPAP throughout the evening. Family at bedside. Lung sounds improved today less congested, he is able to cough up quite a bit of brown to salguero/milk sputum. Culture is currently pending. Labs today show WBC 11.31 which is improving, hemoglobin 12.0. INR 1.7 continues on coumadin. Creatinine improved today as well now 0.9. Blood glucose in the 180s. Continues on IV steroids, IV lasix, updrafts, IV clindamycin, IV azactam, pulmonary following patient closely. Repeat chest xray today shows persistant atelectasis infiltration in lung bases with small bilat pleural effusion Review of Systems Constitutional: Denied any fatigue denied any fever. Cardio vascular: denied any chest pain, palpitations Gastrointestinal: denied any nausea, vomiting, diarrhea Pulmonary: Reports shortness of breath with exertion, improving, reports productive cough Neurologic denied any new focal deficits All inpatient medications were reviewed and appropriate changes in these medications as dictated in the interval history and assessment and plan. PHYSICAL EXAMINATION: GENERAL: The patient is alert and oriented x3, in mild respiratory distress during assessment, tachypneic on bipap. Well developed, well nourished. HEENT: Pupils are round and equally reacting to light. EOMI. No scleral icterus. No conjunctival pallor. Normocephalic, atraumatic. No pharyngeal erythema. No thyromegaly. CARDIOVASCULAR: S1 and S2 present. No murmurs, rubs, or gallops. PULMONARY: Coarse lung sounds bilateral posterior all lung gamboa, no crackles or wheezing noted. Improved aeration. ABDOMEN: Soft, nontender, nondistended, normoactive bowel sounds. No palpable organomegaly. MUSCULOSKELETAL: No joint swelling or deformity. EXTREMITIES: No cyanosis, clubbing, non pitting peripheral edema bilateral chronic NEUROLOGICAL: Gross neurological examination did not reveal any focal deficits. SKIN: No rashes. Assessment and plan Assessment Acute hypoxemic respiratory failure, with BiPAP as needed, titrate to keep oxy gen saturations greater than 90% per pulmonary recommendations, currently weaned to 11 L HF cannula Acute COPD exacerbation continues on IV steroids, updrafts, IV antibiotics Luekocytosis secondary to above, improving Acute kidney injury mostly prerenal, with poor oral intake, losartan decreased, improved creat 0.9 today Hypertension on losartan and norvasc Diabetes mellitus type 2, with steroid induced hyperglycemia, improving with medication changes History of DVT/PE, no evidence for DVT in bilateral lower venous Doppler, d- dimer <0.17, on coumadin Coumadin Coagulopathy, resolved s/p vitamin k Hyperlipidemia Obesity GI Prophylaxis: Protonix DVT Prophylaxis: Coumadin Full code Plan Continue IV abx, IV steroids, updrafts Continue IV lasix Continue all other supportive care Wean oxygen as tolerated PT/OT consult Repeat labs in AM The impression and plan of care has been dictated by Zora Saleem, Nurse Practitioner as directed. Dr. Becky MD I have performed a history and physical examination and medical decision making of this patient, discussed the same with the dictator, and agree with the dictators assessment and plan as written, documented as a scribe. Based on total visit time, I have performed more than 50% of this visit. Objective - Vital Signs Vital signs: Vital Signs Temp 97.7 F 01/01/22 08:15 Pulse 80 01/01/22 12:30 Resp 18 01/01/22 08:15 BP 150/62 01/01/22 08:15 Pulse Ox 93 L 01/01/22 08:29 Intake & Output 12/31/21 01/01/22 01/01/22 18:59 06:59 18:59 Output Total 1200 Balance -1200 Output: Urine 1200 Other: Voiding Method Bedside Commode Urinal Urinal # Voids 4 3 # Bowel Movements 1 - Labs CBC & Chem 7: 01/01/22 05:31 01/01/22 05:26 Labs: Abnormal Lab Results - Last 24 Hours (Table) 12/31/21 12/31/21 01/01/22 Range/Units 16:49 20:14 05:26 WBC (4.50-10.00) X 10*3/uL RBC (4.40-5.60) X 10*6/uL Hgb (13.0-17.0) g/dL Hct (39.6-50.0) % Immature Gran # (0.00-0.04) X 10*3/uL Neutrophils # (1.80-7.70) X 10*3/uL Lymphocytes # (0.90-5.00) X 10*3/uL Eosinophils # (0.04-0.35) X 10*3/uL PT (9.0-12.0) sec INR (<1.2) Chloride 93 L (96-109) mmol/L Carbon Dioxide 30.9 H (20.0-27.5) mmol/L BUN 49.4 H (9.0-27.0) mg/dL BUN/Creatinine Ratio 54.89 H (12.00-20.00) Ratio Glucose 158 H (70-110) mg/dL POC Glucose (mg/dL) 126 H 177 H (75-99) mg/dL Calcium 8.5 L (8.7-10.3) mg/dL 01/01/22 01/01/22 01/01/22 Range/Units 05:31 05:31 07:18 WBC 11.31 H (4.50-10.00) X 10*3/uL RBC 4.13 L (4.40-5.60) X 10*6/uL Hgb 12.0 L (13.0-17.0) g/dL Hct 37.4 L (39.6-50.0) % Immature Gran # 0.10 H (0.00-0.04) X 10*3/uL Neutrophils # 10.05 H (1.80-7.70) X 10*3/uL Lymphocytes # 0.49 L (0.90-5.00) X 10*3/uL Eosinophils # 0.02 L (0.04-0.35) X 10*3/uL PT 17.1 H (9.0-12.0) sec INR 1.7 H (<1.2) Chloride (96-109) mmol/L Carbon Dioxide (20.0-27.5) mmol/L BUN (9.0-27.0) mg/dL BUN/Creatinine Ratio (12.00-20.00) Ratio Glucose (70-110) mg/dL POC Glucose (mg/dL) 151 H (75-99) mg/dL Calcium (8.7-10.3) mg/dL 01/01/22 Range/Units 12:05 WBC (4.50-10.00) X 10*3/uL RBC (4.40-5.60) X 10*6/uL Hgb (13.0-17.0) g/dL Hct (39.6-50.0) % Immature Gran # (0.00-0.04) X 10*3/uL Neutrophils # (1.80-7.70) X 10*3/uL Lymphocytes # (0.90-5.00) X 10*3/uL Eosinophils # (0.04-0.35) X 10*3/uL PT (9.0-12.0) sec INR (<1.2) Chloride (96-109) mmol/L Carbon Dioxide (20.0-27.5) mmol/L BUN (9.0-27.0) mg/dL BUN/Creatinine Ratio (12.00-20.00) Ratio Glucose (70-110) mg/dL POC Glucose (mg/dL) 183 H (75-99) mg/dL Calcium (8.7-10.3) mg/dL Microbiology - Last 24 Hours (Table) 12/29/21 06:15 Blood Culture - Preliminary Blood No Growth after 72 hours 12/31/21 08:41 Sputum Culture - Preliminary Sputum Assessment and Plan Time with Patient: Less than 30
[2022-01-01 13:37] VITALS: BMI 39.6
[2022-01-01] MEDS: PANTOPRAZOLE 40 MG TABLET PO SCH (14:11)
--- NOTE | 2022-01-01 14:18 | P.PN ---
Subjective Progress Note Date: 01/01/22 Principal diagnosis: Acute hypoxic respiratory failure secondary to acute exacerbation of COPD The patient is seen today 12/31/2021 in follow-up on the regular medical floor. He is currently sitting up in a chair at the bedside. Awake and alert in no acute distress. Currently on BiPAP 16/80 and 70% FiO2. He is alternating between that and a nonrebreather mask. He states he is breathing easier today compared to yesterday. Blood culture reveals no growth. White count 14.0. Hemoglobin 12.7. Platelet count 348. Sodium 142. Potassium 3.7. Creatinine 1.1. INR 1.4. Glucose 164. He is anticoagulated with warfarin. Continued on bronchodilators, IV Solu-Medrol, IV diuretics. He is on antibiotics in the form of Azactam. Reevaluated today on 01/01/2022, patient is steadily demonstrating improvement. Nonetheless, patient remains on oxygen and today I cut it down from 10 L to 8 L, O2 sats saturation remains in the low 90s. Patient is breathing a lot easier, hardly any cough no wheezing no fever no chills no hemoptysis. Chest x-ray continues to show atelectasis at the bases and possibly small tiny pleural effusions , etiology is not clear. Nonetheless the patient remains on diuretics WBC count today is 11.3 hemoglobin is 12 electrolytes are normal renal profile is normal and his INR today is 1.7 Objective - Vital Signs Vital signs: Vital Signs Temp 97.7 F 01/01/22 08:15 Pulse 80 01/01/22 12:30 Resp 18 01/01/22 08:15 BP 150/62 01/01/22 08:15 Pulse Ox 93 L 01/01/22 08:29 Intake & Output 12/31/21 01/01/22 01/01/22 18:59 06:59 18:59 Output Total 1200 Balance -1200 Weight 114.945 kg Output: Urine 1200 Other: Voiding Method Bedside Commode Urinal Urinal # Voids 4 3 # Bowel Movements 1 - Exam Physical Exam: Revealed 81-year-old white male very pleasant, on 8 L high flow nasal cannula in no distress. Head: Atraumatic, normocephalic. HEENT:[Neck is supple.] [No neck masses.] [No thyromegaly.] [No JVD.] Chest: [Diminished breath sounds at the bases slight wheezing on forced expiratory maneuver only. Cardiac Exam: [Normal S1 and S2, no S3 gallop, no murmur.] Abdomen: [Soft, nontender, no megaly, no rebound, no guarding, normal bowel sounds.] Extremities: [No clubbing, no edema, no cyanosis.] Neurological Exam: [No focal neurologic deficit.] Alert oriented 3. Psychiatric: Normal mood, affect and normal mental status examination. Skin: No rashes. - Labs CBC & Chem 7: 01/01/22 05:31 01/01/22 05:26 Labs: Abnormal Lab Results - Last 24 Hours (Table) 12/31/21 12/31/21 01/01/22 Range/Units 16:49 20:14 05:26 WBC (4.50-10.00) X 10*3/uL RBC (4.40-5.60) X 10*6/uL Hgb (13.0-17.0) g/dL Hct (39.6-50.0) % Immature Gran # (0.00-0.04) X 10*3/uL Neutrophils # (1.80-7.70) X 10*3/uL Lymphocytes # (0.90-5.00) X 10*3/uL Eosinophils # (0.04-0.35) X 10*3/uL PT (9.0-12.0) sec INR (<1.2) Chloride 93 L (96-109) mmol/L Carbon Dioxide 30.9 H (20.0-27.5) mmol/L BUN 49.4 H (9.0-27.0) mg/dL BUN/Creatinine Ratio 54.89 H (12.00-20.00) Ratio Glucose 158 H (70-110) mg/dL POC Glucose (mg/dL) 126 H 177 H (75-99) mg/dL Calcium 8.5 L (8.7-10.3) mg/dL 01/01/22 01/01/22 01/01/22 Range/Units 05:31 05:31 07:18 WBC 11.31 H (4.50-10.00) X 10*3/uL RBC 4.13 L (4.40-5.60) X 10*6/uL Hgb 12.0 L (13.0-17.0) g/dL Hct 37.4 L (39.6-50.0) % Immature Gran # 0.10 H (0.00-0.04) X 10*3/uL Neutrophils # 10.05 H (1.80-7.70) X 10*3/uL Lymphocytes # 0.49 L (0.90-5.00) X 10*3/uL Eosinophils # 0.02 L (0.04-0.35) X 10*3/uL PT 17.1 H (9.0-12.0) sec INR 1.7 H (<1.2) Chloride (96-109) mmol/L Carbon Dioxide (20.0-27.5) mmol/L BUN (9.0-27.0) mg/dL BUN/Creatinine Ratio (12.00-20.00) Ratio Glucose (70-110) mg/dL POC Glucose (mg/dL) 151 H (75-99) mg/dL Calcium (8.7-10.3) mg/dL 01/01/22 Range/Units 12:05 WBC (4.50-10.00) X 10*3/uL RBC (4.40-5.60) X 10*6/uL Hgb (13.0-17.0) g/dL Hct (39.6-50.0) % Immature Gran # (0.00-0.04) X 10*3/uL Neutrophils # (1.80-7.70) X 10*3/uL Lymphocytes # (0.90-5.00) X 10*3/uL Eosinophils # (0.04-0.35) X 10*3/uL PT (9.0-12.0) sec INR (<1.2) Chloride (96-109) mmol/L Carbon Dioxide (20.0-27.5) mmol/L BUN (9.0-27.0) mg/dL BUN/Creatinine Ratio (12.00-20.00) Ratio Glucose (70-110) mg/dL POC Glucose (mg/dL) 183 H (75-99) mg/dL Calcium (8.7-10.3) mg/dL Microbiology - Last 24 Hours (Table) 12/29/21 06:15 Blood Culture - Preliminary Blood No Growth after 72 hours 12/31/21 08:41 Sputum Culture - Preliminary Sputum Assessment and Plan Assessment: Impression: Acute hypoxic respiratory failure secondary to acute exacerbation of COPD Acute tracheobronchitis, strongly doubt pneumonia with a relatively normal pro- calcitonin level Bibasilar atelectasis as noted on chest x-ray. Morbid obesity. History of DVT and pulmonary embolism remains on Coumadin Hypertension. Dyslipidemia. Obstructive sleep apnea syndrome. Recommendation: Continue present supportive care measures Continue IV Solu-Medrol Continue bronchodilators and continue diuretics Continue antibiotics since the patient is demonstrating clinical improvement although his pro-calcitonin level was not significantly elevated Continue BiPAP as needed Titrate oxygen accordingly and maintain O2 saturation above 90% We will continue to follow not quite ready for discharge planning as long as he is requiring oxygen above 5 L Time with Patient: Less than 30
[2022-01-01] MEDS: SODIUM CHLORIDE 0.9% 1,000 ML IV SCH (15:12)
[2022-01-01 17:27] LABS: Glucose,Whole Blood 233 mg/dL (75-99)
[2022-01-01] MEDS ORDERED: WARFARIN 5 MG TAB PO ONE (18:00)
[2022-01-01] MEDS: PRAVASTATIN SODIUM 40 MG TAB PO SCH (19:45)
[2022-01-01 21:11] LABS: Glucose,Whole Blood 184 mg/dL (75-99)
[2022-01-01] MEDS: INSULIN DETEMIR (LEVEMIR) 100 UNIT/ML SYR SQ SCH (21:49)
[2022-01-02] MEDS: methylPREDNISolone SOD SUCCI 125 MG/2 ML VIAL IV SCH ×5 (00:08→23:48)
[2022-01-02] MEDS: guaiFENesin SYRUP 100MG/5ML 200 MG/10 ML CUP PO SCH ×4 (00:08→23:47)
[2022-01-02] MEDS: AZTREONAM 1 GM in SODIUM CHLORIDE 0.9% 50 ML IVPB SCH ×4 (00:08→23:47)
[2022-01-02] MEDS: CLINDAMYCIN 300 MG in DEXTROSE 5% IN WATER 50 ML IVPB SCH ×8 (02:37→21:16)
[2022-01-02 05:34] LABS: INR 2.4 (<1.2); Prothrombin Time 24.2 sec (9.0-12.0)
[2022-01-02 06:56] LABS: Glucose,Whole Blood 149 mg/dL (75-99)
[2022-01-02 08:56] LABS: Basophils # (A) 0.01 X 10*3/uL (0.00-0.10); Basophils % (A) 0.1 %; Eosinophils # (A) 0.01 X 10*3/uL (0.04-0.35); Eosinophils % (A) 0.1 %; HCT 37.7 % (39.6-50.0); Immature Grans, Automated 0.9 %; Lymphocytes # (A) 0.44 X 10*3/uL (0.90-5.00); Lymphocytes % (A) 3.8 %; MCH 28.7 pg (27.0-32.0); MCHC 31.8 g/dL (32.0-37.0); MCV 90.2 fL (80.0-97.0); Mean Platelet Volume 10.2 fL (9.5-12.2); Monocytes # (A) 0.85 X 10*3/uL (0.20-1.00); Monocytes % (A) 7.4 %; NRBC Per 100 WBC 0 /100 WBCS (0.0-0.0); Neutrophils # (A) 10.02 X 10*3/uL (1.80-7.70); Neutrophils % (A) 87.7 %; Platelet Count 305 X 10*3/uL (140-440); RBC 4.18 X 10*6/uL (4.40-5.60); RDW 12.7 % (11.5-14.5); WBC 11.43 X 10*3/uL (4.50-10.00)
[2022-01-02] MEDS: FUROSEMIDE 10 MG/ML 4 ML VIAL IV SCH ×2 (08:56→21:15)
[2022-01-02] MEDS: IPRATROPIUM-ALBUTEROL 3 ML NEB INHALATION SCH ×4 (08:56→20:14)
[2022-01-02] MEDS: LOSARTAN 50 MG TAB PO SCH (08:57)
[2022-01-02] MEDS: INSULIN ASPART (NovoLOG) 100 UNIT/ML VIAL SQ SCH ×7 (08:57→21:15)
[2022-01-02] MEDS: amLODIPine 5 MG TAB PO SCH (08:57)
[2022-01-02] MEDS: POTASSIUM BICARBONATE/CIT AC 20 MEQ TABLET.EFF PO SCH ×2 (08:58→21:16)
[2022-01-02 09:14] LABS: African American GFR (CKD) 82.6 (60.0-200.0); Anion Gap 10.2 mmol/L (10.00-18.00); BUN/Creat Ratio 41.8 Ratio (12.00-20.00); Blood Urea Nitrogen 41.8 mg/dL (9.0-27.0); Calcium 8.1 mg/dL (8.7-10.3); Carbon Dioxide 32.8 mmol/L (20.0-27.5); Non-African American GFR(CKD) 71.3 (60.0-200.0); Potassium 3.7 mmol/L (3.5-5.5)
--- NOTE | 2022-01-02 09:37 | P.PN ---
Subjective Progress Note Date: 01/02/22 The patient is seen today 01/02/2022 in follow-up on the regular medical floor. He is currently sitting up in a chair at the bedside. He is awake and alert in no acute distress. Feeling quite a bit better. He is down to 4 L high flow nasal cannula with O2 saturations in the mid 90s. This will be adjusted down to 3 L. He did receive Lasix yesterday and diuresed well. Currently in a -1.8 L balance. Current weight is 115 kg. Blood cultures revealed no growth. Sputum culture revealed no growth. White count 11.4. Hemoglobin 12.0. INR 2.4. Sodium 137. Potassium 3.7. BUN 42. Creatinine 1.0. Blood glucose 154. He is continued on Lasix 40 mg IV twice a day, DuoNeb inhalations, IV Solu-Medrol, antibiotics in the form of clindamycin and aztreonam. Anticoagulated with warfarin. Objective - Vital Signs Vital signs: Vital Signs Temp 98.7 F 01/02/22 01:30 Pulse 77 01/02/22 09:11 Resp 20 01/02/22 01:30 BP 152/68 01/02/22 01:30 Pulse Ox 97 01/02/22 08:58 Intake & Output 01/01/22 01/02/22 01/02/22 18:59 06:59 18:59 Output Total 1200 600 Balance -1200 -600 Weight 114.945 kg Output: Urine 1200 600 Other: Voiding Method Urinal Urinal # Voids 3 1 # Bowel Movements 1 - Exam GENERAL EXAM: Alert, obese 81-year-old male patient, on 4 L high flow nasal cannula, up in a chair at the bedside, comfortable in no apparent distress. HEAD: Normocephalic. EYES: Normal reaction of pupils, equal size. NOSE: Clear with pink turbinates. THROAT: No erythema or exudates. NECK: No masses, no JVD. CHEST: No chest wall deformity. LUNGS: Equal air entry with bilateral scattered rhonchi, end expiratory wheeze. Diminished. CVS: S1 and S2 normal with no audible murmur, regular rhythm. ABDOMEN: No hepatosplenomegaly, normal bowel sounds, no guarding or rigidity. SPINE: No scoliosis or deformity SKIN: No rashes CENTRAL NERVOUS SYSTEM: No focal deficits, tone is normal in all 4 extremities. EXTREMITIES: There is 1+ peripheral edema. No clubbing, no cyanosis. Peripheral pulses are intact. - Labs CBC & Chem 7: 01/02/22 05:08 01/02/22 05:08 Labs: Abnormal Lab Results - Last 24 Hours (Table) 01/01/22 01/01/22 01/01/22 Range/Units 12:05 17:26 21:01 WBC (4.50-10.00) X 10*3/uL RBC (4.40-5.60) X 10*6/uL Hgb (13.0-17.0) g/dL Hct (39.6-50.0) % MCHC (32.0-37.0) g/dL Immature Gran # (0.00-0.04) X 10*3/uL Neutrophils # (1.80-7.70) X 10*3/uL Lymphocytes # (0.90-5.00) X 10*3/uL Eosinophils # (0.04-0.35) X 10*3/uL PT (9.0-12.0) sec INR (<1.2) Chloride (96-109) mmol/L Carbon Dioxide (20.0-27.5) mmol/L BUN (9.0-27.0) mg/dL BUN/Creatinine Ratio (12.00-20.00) Ratio Glucose (70-110) mg/dL POC Glucose (mg/dL) 183 H 233 H 184 H (75-99) mg/dL Calcium (8.7-10.3) mg/dL 01/02/22 01/02/22 01/02/22 Range/Units 05:08 05:08 05:08 WBC 11.43 H (4.50-10.00) X 10*3/uL RBC 4.18 L (4.40-5.60) X 10*6/uL Hgb 12.0 L (13.0-17.0) g/dL Hct 37.7 L (39.6-50.0) % MCHC 31.8 L (32.0-37.0) g/dL Immature Gran # 0.10 H (0.00-0.04) X 10*3/uL Neutrophils # 10.02 H (1.80-7.70) X 10*3/uL Lymphocytes # 0.44 L (0.90-5.00) X 10*3/uL Eosinophils # 0.01 L (0.04-0.35) X 10*3/uL PT 24.2 H (9.0-12.0) sec INR 2.4 H (<1.2) Chloride 94 L (96-109) mmol/L Carbon Dioxide 32.8 H (20.0-27.5) mmol/L BUN 41.8 H (9.0-27.0) mg/dL BUN/Creatinine Ratio 41.80 H (12.00-20.00) Ratio Glucose 154 H (70-110) mg/dL POC Glucose (mg/dL) (75-99) mg/dL Calcium 8.1 L (8.7-10.3) mg/dL 01/02/22 Range/Units 06:55 WBC (4.50-10.00) X 10*3/uL RBC (4.40-5.60) X 10*6/uL Hgb (13.0-17.0) g/dL Hct (39.6-50.0) % MCHC (32.0-37.0) g/dL Immature Gran # (0.00-0.04) X 10*3/uL Neutrophils # (1.80-7.70) X 10*3/uL Lymphocytes # (0.90-5.00) X 10*3/uL Eosinophils # (0.04-0.35) X 10*3/uL PT (9.0-12.0) sec INR (<1.2) Chloride (96-109) mmol/L Carbon Dioxide (20.0-27.5) mmol/L BUN (9.0-27.0) mg/dL BUN/Creatinine Ratio (12.00-20.00) Ratio Glucose (70-110) mg/dL POC Glucose (mg/dL) 149 H (75-99) mg/dL Calcium (8.7-10.3) mg/dL Microbiology - Last 24 Hours (Table) 12/29/21 06:15 Blood Culture - Preliminary Blood No Growth after 96 hours 12/31/21 08:41 Gram Stain - Preliminary Sputum Sputum Culture - Preliminary Assessment and Plan Assessment: 1 Acute COPD exacerbation, no evidence of any acute pneumonia. Chest x-ray showing some chronic scarring and atelectatic changes in lung bases bilaterally. No indication for an acute pneumonia. Pro-calcitonin 0.09. ProBNP level is not elevated. Troponins are all negative. Lactic acid level 1.3, the patient has been vaccinated an infected with COVID 19 in the past, clinically improving. Currently down to 4 L high flow nasal cannula. Off the BiPAP. 2 Shortness of breath secondary to above, improving 3 History of chronic COPD with a previous spirometry shows an FEV1 of 71% of related to maintain on Spiriva and Advair an outpatient basis also has a pro- air rescue inhaler and O2 at 2.5 L per minute nasal cannula 4 Obesity, current BMI 39.7 5 Remote history of DVT and pulmonary embolism maintained on left lung articulation with warfarin, INR is therapeutic at 2.4 6 Chronic lower extremity edema right more than left, dopplers negative for DVT 7 Hypertension 8 Hyperlipidemia 9 Recent history of tooth extraction 3 weeks ago 10 History of obstructive sleep apnea with sleep study over 10 years ago and had previously been intolerant to CPAP Plan: The patient was seen and evaluated Chest x-ray and labs reviewed Currently on 4 L high flow nasal cannula Improved today compared to yesterday Diuresing well from the IV diuretics, remains in a negative balance Continue IV Solu-Medrol and bronchodilators Continue aztreonam and clindamycin Follow-up chest x-ray in a.m. Probable discharge home in the a.m. Should be reevaluated for OPHELIA in the outpatient setting We will continue to follow I have personally seen and examined the patient, performed the documentation and the assessment and plan as written. Number of minutes spent on the visit: 10.
[2022-01-02 11:23] LABS: Glucose,Whole Blood 169 mg/dL (75-99)
--- NOTE | 2022-01-02 14:46 | P.PN ---
Subjective Progress Note Date: 01/02/22 Acute hypoxemic respiratory failure Acute exacerbation COPD 81-year-old male patient, coming in with worsening shortness of breath. The patient was Hospital as for an acute COPD exacerbation. The patient came into the ED and the patient was having significant respiratory distress and immediately the patient was placed on the BiPAP and currently is off the BiPAP. He is known to have COPD. Last evaluation in our office showed an FEV1 of 71% of predicted. The patient is known to have COPD and the patient remains on a combination of Advair and Spiriva on outpatient basis. Uses Proventil rescue i nhaler necessary basis. His been on oxygen at 2.5 L per minute nasal cannula. He had COVID 19 infection back in September 2021. He has been vaccinated and boosted. 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 He apparently has an underlying hypercoagulable state. He has a previous history of DVT of the left lower extremity. Laboratory completed in ED reveals WBC of 14.5, hemoglobin 13.7, platelet count of 462, sodium 135, potassium 2.7, BUN/creatinine of 17/1.0 and blood glucose of 145, INR 2.6 Chest x-ray reveals chronic scarring and atelectasis 12/27/2021 Patient reports some improvement in breathing. The patient is currently off the BiPAP. He was able to use the BiPAP throughout the night yesterday. -- patient remains on a combination of bronchodilators steroids. Doppler of the lower descending was done and the results are negative for DVT. The patient also had an echocardiogram results are still pending for now. -- Patient remains on Lasix 40 mg IV every 12 hours and the dose will be reduced to once a day; DuoNeb nebulized treatments around the clock; IV Solu Medrol 60 mg every 6 hours. PT/INR is subtherapeutic and is placed on hold for today. IV fluids will be cut down to KVO. The patient is on Coumadin and INR is at 5.3. BUN is at 25 and a creatinine of 1.0. The white cell count is 16.4. No chest pain. No altered mentation. No other significant events otherwise over the past 24 hours. 12/28/2021 Patient is seen and evaluated in room at bedside; discussed with nursing staff; reports worsening shortness of breath. The patient is being treated for an acute COPD exacerbation. Vital signs are reviewed and reveal a temperature of 98, pulse 106, respiration 20 and blood pressure 143/73 The patient is also noted to have increased lower extremity edema and the patient is being diuresed with IV Lasix. There is further optimization in the fluid balance. Echocardiogram results are still pending. Note that the Doppler of the lower extremity were negative for DVTs. INR is still elevated and the patient will be given vitamin K today. No signs of any bleeding. INR today is at 7.8 and I'm recommending giving the patient total of 2 mg IV the patient remains on IV Solu Medrol. No new complaints. 12/29/2021 Delayed charting patient evaluated at 1200 today Patient sitting up in the chair with family at bedside. He is tachypneic as well as tachycardia with a heart rate in the 110's. EKG was performed which showed sinus tachycardia with PAC's. Patient was an ateam earlier in the morning and was placed on 100% BiPAP with oxygen saturation in the low 80s. Patient then had a pulse ox of 78% around 1130 today with shortness of breath. D-Dimer WNL <0.17, procalcitonin pending. Lactic acid 1.3. WBC did jump today to 26.8. Could be some steroid effect as well. Was started on IV aztreonam and clindamycin by pulmonary team. Continues on IV lasix daily, as well as updrafts and IV solumedrol. INR today 1.3, potassium 3.6, chloride 93, CO2 35, pO2 56, creatinine 1.29 which is increased from yesterday. blood glucose in the 160s. Echocardiogram taken on the is pending. INR 1.3, will resume coumadin with close monitoring. 12/30/2021 Patient evaluated today sitting up in chair with family at the bedside. Breathing improved, patient continues on 15L non-rebreather with oxygen saturation 98%. Started on IV antibiotics yesterday. WBC today now 18.56, hgb 12.5. INR today 1.09, continues on coumadin. Sodium 139, CO2 30.2, BUN 1.2, blood glucose in the 205. Procalcitonin 0.09. Urinalysis negative. Patient is afebrile, heart rate 92, blood pressure 143/67. Continues on updrafts, IV solumedrol, IV lasix, Followed closely by pulmonary. 12/31/2021 Patient sitting up in chair today. Continues on IV antibiotics, WBC improved to 14.04 today. INR 1.4. BUN 57, creat 1.1. Patient is less short of breath today, however now with productive cough with thick salguero/brown sputum. He has been able to give sample which is pending. Patient has been using BiPAP 70% FiO2, NRB, and seen today wearing 13 HF cannula with saturation of 94%. Afebrile, blood pressure 135/69. Continues on updrafts, IV steroids. 01/01/2022 Patient continues to improve today, weaned down to 11 L HF cannula states able to take deeper breaths and ambulate some in the room today. Did not wear BiPAP throughout the evening. Family at bedside. Lung sounds improved today less congested, he is able to cough up quite a bit of brown to salguero/milk sputum. Culture is currently pending. Labs today show WBC 11.31 which is improving, hemoglobin 12.0. INR 1.7 continues on coumadin. Creatinine improved today as well now 0.9. Blood glucose in the 180s. Continues on IV steroids, IV lasix, updrafts, IV clindamycin, IV azactam, pulmonary following patient closely. Repeat chest xray today shows persistant atelectasis infiltration in lung bases with small bilat pleural effusion 01/02/2022 Patient is seen in follow-up today currently sitting up in the chair with the at the bedside area did patient being followed closely by pulmonary and maintained on aztreonam along with clindamycin. Sputum cultures are negative and blood cultures remain negative. Patient also to continue on IV Lasix twice daily, breathing inhalational treatments and IV steroids. Physical therapy to evaluate the patient as well. Patient reports to walking the halls today and doing well. Patient currently maintained on 4 L via nasal cannula and recommended repeat chest x-ray and labs in the morning. Patient denies worsening shortness of breath, chest pain or palpitations. Patient is afebrile. Patient tolerating diet with no reports of nausea or vomiting noted. Recommend close monitoring blood sugars as well as patient is maintained on pre-meal, sliding scale and long-acting insulin and will continue. Accu-Cheks before meals and at bedtime. Review of Systems Constitutional: Denied any fatigue denied any fever. Cardio vascular: denied any chest pain, palpitations Gastrointestinal: denied any nausea, vomiting, diarrhea Pulmonary: Reports shortness of breath with exertion, improving, reports productive cough Neurologic denied any new focal deficits Active Medications Acetaminophen (Acetaminophen Tab 325 Mg Tab) 650 mg PO Q6HR PRN PRN Reason: Mild Pain or Fever > 100.5 Last Admin: 12/29/21 12:02 Dose: 650 mg Documented by: Albuterol/Ipratropium (Ipratropium-Albuterol 3 Ml Neb) 3 ml INHALATION RT-QID PRN PRN Reason: Shortness Of Breath Or Wheezing Last Admin: 12/29/21 02:34 Dose: 3 ml Documented by: Albuterol/Ipratropium (Ipratropium-Albuterol 3 Ml Neb) 3 ml INHALATION RT-QID [facility]AYANA Last Admin: 01/02/22 08:56 Dose: 3 ml Documented by: Alprazolam (Alprazolam 0.25 Mg Tab) 0.25 mg PO TID PRN PRN Reason: Anxiety Last Admin: 12/30/21 20:34 Dose: 0.25 mg Documented by: Amlodipine Besylate (Amlodipine 5 Mg Tab) 5 mg PO DAILY [facility] Last Admin: 01/02/22 08:57 Dose: 5 mg Documented by: Furosemide (Furosemide 10 Mg/Ml 4 Ml Vial) 40 mg IV BID [facility] Last Admin: 01/02/22 08:56 Dose: 40 mg Documented by: Guaifenesin (Guaifenesin Syrup 100mg/5ml 200 Mg/10 Ml Cup) 400 mg PO Q8HR [facility] Last Admin: 01/02/22 08:57 Dose: 400 mg Documented by: Sodium Chloride (Saline 0.9%) 1,000 mls @ 10 mls/hr IV .Q24H [facility] Last Admin: 01/01/22 15:12 Dose: 10 mls/hr Documented by: Aztreonam 1 gm/ Sodium (Chloride) 50 mls @ 16.67 mls/hr IVPB Q8HR [facility]; Protocol Last Admin: 01/02/22 08:57 Dose: 16.67 mls/hr Documented by: Clindamycin Phosphate 300 mg/ (Dextrose/Water) 52 mls @ 50 mls/hr IVPB Q6H [facility]; Protocol Last Admin: 01/02/22 08:57 Dose: 50 mls/hr Documented by: Insulin Aspart (Insulin Aspart (Novolog) 100 Unit/Ml Vial) 0 unit SQ ACHS [facility]; Protocol Last Admin: 01/02/22 08:57 Dose: 2 unit Documented by: Insulin Aspart (Insulin Aspart (Novolog) 100 Unit/Ml Vial) 2 unit SQ AC-TID [facility] Last Admin: 01/02/22 08:57 Dose: 2 unit Documented by: Insulin Detemir (Insulin Detemir (Levemir) 100 Unit/Ml Syr) 20 unit SQ [facility] Last Admin: 01/01/22 21:49 Dose: 20 unit Documented by: Losartan Potassium (Losartan 50 Mg Tab) 50 mg PO DAILY [facility] Last Admin: 01/02/22 08:57 Dose: 50 mg Documented by: Methylprednisolone Sodium Succinate (Methylprednisolone Sod Succi 125 Mg/2 Ml Vial) 60 mg IV Q6HR [facility] Last Admin: 01/02/22 05:21 Dose: 60 mg Documented by: Miscellaneous Information (Warfarin Per Pharmacy) 1 each MISCELLANE DIRECTED PRN; Protocol PRN Reason: Per Protocol Morphine Sulfate (Morphine Sulfate 2 Mg/Ml Syringe) 2 mg IVP Q4HR PRN PRN Reason: Pain/Discomfort Morphine Sulfate (Morphine Sulfate 4 Mg/Ml Syringe) 4 mg IV Q4HR PRN PRN Reason: Severe Pain Naloxone HCl (Naloxone 0.4 Mg/Ml 1 Ml Vial) 0.2 mg IV Q2M PRN PRN Reason: Opioid Reversal Ondansetron HCl (Ondansetron 4 Mg/2 Ml Vial) 4 mg IVP Q8HR PRN PRN Reason: Nausea And Vomiting Pantoprazole Sodium (Pantoprazole 40 Mg Tablet) 40 mg PO Q2D [facility] Last Admin: 01/01/22 14:11 Dose: 40 mg Documented by: Potassium Bicarbonate (Potassium Bicarbonate/Cit Ac 20 Meq Tablet.Eff) 20 meq PO BID [facility] Last Admin: 01/02/22 08:58 Dose: 20 meq Documented by: Pravastatin Sodium (Pravastatin Sodium 40 Mg Tab) 40 mg PO HS [facility] Last Admin: 01/01/22 19:45 Dose: 40 mg Documented by: Warfarin Sodium (Warfarin 3 Mg Tab) 3 mg PO ONCE@1800 ONE Stop: 01/02/22 18:01 PHYSICAL EXAMINATION: GENERAL: The patient is alert and oriented x3, less tachypneic on today's exam. Currently maintained on 4 L via nasal cannula and has not required BiPAP and o kierra 3 nights Well developed, well nourished. HEENT: Pupils are round and equally reacting to light. EOMI. No scleral icterus. No conjunctival pallor. Normocephalic, atraumatic. No pharyngeal erythema. No thyromegaly. CARDIOVASCULAR: S1 and S2 muffled PULMONARY: Coarse lung sounds bilateral posterior all lung gamboa, scattered rhonchi and mild expiratory wheezing noted. Improved aeration. ABDOMEN: Soft, obese, nontender, nondistended, normoactive bowel sounds. No palpable organomegaly. MUSCULOSKELETAL: No joint swelling or deformity. EXTREMITIES: No cyanosis, clubbing, non pitting peripheral edema bilateral chronic NEUROLOGICAL: Gross neurological examination did not reveal any focal deficits. SKIN: No rashes. Assessment: Acute hypoxemic respiratory failure, secondary to acute COPD exacerbation, initially requiring BiPAP Leukocytosis secondary to above, improving Acute kidney injury mostly prerenal, with poor oral intake, improving Hypertension Diabetes mellitus type 2, with steroid induced hyperglycemia History of DVT/PE, no evidence for DVT in bilateral lower venous Doppler, d- dimer <0.17, on coumadin Coumadin Coagulopathy, resolved s/p vitamin k Hyperlipidemia Obesity GI Prophylaxis: Protonix DVT Prophylaxis: Coumadin Full code Plan: Recommend to continue with prophylactic IV antibiotics, IV steroids, IV Lasix, and continue breathing inhalational treatments 4 times a day and as needed Recommend follow-up labs and repeat labs ordered along with chest x-ray in the morning Continue to wean FiO2 as tolerated, currently 4 L via nasal cannula Recommend PT/OT to evaluate the patient and work with daily Recommend Close monitoring of Accu-Cheks before meals and at bedtime and continue with current pre-meal, sliding scale, long acting insulin Recommend continue with consistent carb diet Due to multiple complex medical issues, prognosis is guarded Possible discharge in 24 hours Patient will need outpatient follow-up with pulmonary for further testing for obstructive sleep apnea, tested previously many years ago although did not tolerate CPAP device The impression and plan of care has been dictated by Dalia Campos, Nurse Practitioner as directed. Dr. Palomo MD I have performed a history and physical examination and medical decision making of this patient, discussed the same with the dictator, and agree with the dictators assessment and plan as written, documented as a scribe. Based on total visit time, I have performed more than 50% of this visit. Objective - Vital Signs Vital signs: Vital Signs Temp 97.8 F 01/02/22 09:34 Pulse 82 01/02/22 09:34 Resp 18 01/02/22 09:34 BP 145/82 01/02/22 09:34 Pulse Ox 92 L 01/02/22 09:34 Intake & Output 01/01/22 01/02/22 01/02/22 18:59 06:59 18:59 Output Total 1200 600 Balance -1200 -600 Weight 114.945 kg Output: Urine 1200 600 Other: Voiding Method Urinal Urinal # Voids 3 1 # Bowel Movements 1 - Labs CBC & Chem 7: 01/02/22 05:08 01/02/22 05:08 Labs: Abnormal Lab Results - Last 24 Hours (Table) 01/01/22 01/01/22 01/01/22 Range/Units 12:05 17:26 21:01 WBC (4.50-10.00) X 10*3/uL RBC (4.40-5.60) X 10*6/uL Hgb (13.0-17.0) g/dL Hct (39.6-50.0) % MCHC (32.0-37.0) g/dL Immature Gran # (0.00-0.04) X 10*3/uL Neutrophils # (1.80-7.70) X 10*3/uL Lymphocytes # (0.90-5.00) X 10*3/uL Eosinophils # (0.04-0.35) X 10*3/uL PT (9.0-12.0) sec INR (<1.2) Chloride (96-109) mmol/L Carbon Dioxide (20.0-27.5) mmol/L BUN (9.0-27.0) mg/dL BUN/Creatinine Ratio (12.00-20.00) Ratio Glucose (70-110) mg/dL POC Glucose (mg/dL) 183 H 233 H 184 H (75-99) mg/dL Calcium (8.7-10.3) mg/dL 01/02/22 01/02/22 01/02/22 Range/Units 05:08 05:08 05:08 WBC 11.43 H (4.50-10.00) X 10*3/uL RBC 4.18 L (4.40-5.60) X 10*6/uL Hgb 12.0 L (13.0-17.0) g/dL Hct 37.7 L (39.6-50.0) % MCHC 31.8 L (32.0-37.0) g/dL Immature Gran # 0.10 H (0.00-0.04) X 10*3/uL Neutrophils # 10.02 H (1.80-7.70) X 10*3/uL Lymphocytes # 0.44 L (0.90-5.00) X 10*3/uL Eosinophils # 0.01 L (0.04-0.35) X 10*3/uL PT 24.2 H (9.0-12.0) sec INR 2.4 H (<1.2) Chloride 94 L (96-109) mmol/L Carbon Dioxide 32.8 H (20.0-27.5) mmol/L BUN 41.8 H (9.0-27.0) mg/dL BUN/Creatinine Ratio 41.80 H (12.00-20.00) Ratio Glucose 154 H (70-110) mg/dL POC Glucose (mg/dL) (75-99) mg/dL Calcium 8.1 L (8.7-10.3) mg/dL 01/02/22 Range/Units 06:55 WBC (4.50-10.00) X 10*3/uL RBC (4.40-5.60) X 10*6/uL Hgb (13.0-17.0) g/dL Hct (39.6-50.0) % MCHC (32.0-37.0) g/dL Immature Gran # (0.00-0.04) X 10*3/uL Neutrophils # (1.80-7.70) X 10*3/uL Lymphocytes # (0.90-5.00) X 10*3/uL Eosinophils # (0.04-0.35) X 10*3/uL PT (9.0-12.0) sec INR (<1.2) Chloride (96-109) mmol/L Carbon Dioxide (20.0-27.5) mmol/L BUN (9.0-27.0) mg/dL BUN/Creatinine Ratio (12.00-20.00) Ratio Glucose (70-110) mg/dL POC Glucose (mg/dL) 149 H (75-99) mg/dL Calcium (8.7-10.3) mg/dL Microbiology - Last 24 Hours (Table) 12/29/21 06:15 Blood Culture - Preliminary Blood No Growth after 96 hours 12/31/21 08:41 Gram Stain - Preliminary Sputum Sputum Culture - Preliminary
[2022-01-02 16:21] LABS: Glucose,Whole Blood 187 mg/dL (75-99)
[2022-01-02] MEDS: SODIUM CHLORIDE 0.9% 1,000 ML IV SCH (17:10)
[2022-01-02] MEDS ORDERED: WARFARIN 3 MG TAB PO ONE (18:00)
[2022-01-02 20:17] LABS: Glucose,Whole Blood 195 mg/dL (75-99)
[2022-01-02] MEDS: INSULIN DETEMIR (LEVEMIR) 100 UNIT/ML SYR SQ SCH (21:16)
[2022-01-02] MEDS: PRAVASTATIN SODIUM 40 MG TAB PO SCH (21:16)
[2022-01-03 01:54] VITALS: TEMP 97.7
[2022-01-03] MEDS: CLINDAMYCIN 300 MG in DEXTROSE 5% IN WATER 50 ML IVPB SCH ×4 (02:30→08:19)
[2022-01-03] MEDS: methylPREDNISolone SOD SUCCI 125 MG/2 ML VIAL IV SCH (05:22)
[2022-01-03 06:31] LABS: Basophils % (A) 0 %; Eosinophils # (A) 0.1 k/uL (0-0.7); Eosinophils % (A) 0 %; Lymphocytes # (A) 0.4 k/uL (1.0-4.8); Lymphocytes % (A) 3 %; MCH 29.2 pg (25.0-35.0); MCHC 32.4 g/dL (31.0-37.0); MCV 90.4 fL (80.0-100.0); Mean Platelet Volume 7.5; Monocytes # (A) 0.9 k/uL (0-1.0); Monocytes % (A) 7 %; Neutrophils # (A) 11.9 k/uL (1.3-7.7); Neutrophils % (A) 89 %; Platelet Count 299 k/uL (150-450); RBC 4.43 m/uL (4.30-5.90); RDW 12.6 % (11.5-15.5); WBC 13.4 k/uL (3.8-10.6)
[2022-01-03 06:39] LABS: INR 2.9 (<1.2); Prothrombin Time 28.8 sec (9.0-12.0)
[2022-01-03 06:45] LABS: African American GFR (CKD) >90 (>60 ml/min/1.73 sqM); Anion Gap 5 mmol/L; Blood Urea Nitrogen 39 mg/dL (9-20); Calcium 7.6 mg/dL (8.4-10.2); Carbon Dioxide 34 mmol/L (22-30); Chloride 94 mmol/L (98-107); Glucose 156 mg/dL (74-99); Non-African American GFR(CKD) 82 (>60 ml/min/1.73 sqM); Potassium 3.5 mmol/L (3.5-5.1); Sodium 133 mmol/L (137-145)
[2022-01-03 06:58] LABS: Glucose,Whole Blood 161 mg/dL (75-99)
--- NOTE | 2022-01-03 07:07 | XR ---
EXAMINATION TYPE: XR chest 1V portable DATE OF EXAM: 01/03/2022 6:36 AM COMPARISON:Chest radiograph from two days prior. TECHNIQUE: XR chest 1V portable Frontal view of the chest. CLINICAL INDICATION:Male, 81 years old with history of CHF; FINDINGS: Lungs/Pleura: There is flattening of the diaphragm with increased lucency of the lungs. No evidence o f pneumothorax, pleural effusion or focal consolidation. There is basilar atelectasis bilaterally. Pulmonary vascularity: Unremarkable. Heart/mediastinum: Cardiomediastinal silhouette is unremarkable. Musculoskeletal: No acute osseous pathology. IMPRESSION: 1. Basilar atelectasis without acute cardiopulmonary disease process. 2. COPD changes.
[2022-01-03 08:08] VITALS: BP 144/69; RESP 16
[2022-01-03] MEDS: INSULIN ASPART (NovoLOG) 100 UNIT/ML VIAL SQ SCH ×4 (08:20→12:21)
[2022-01-03] MEDS: AZTREONAM 1 GM in SODIUM CHLORIDE 0.9% 50 ML IVPB SCH (08:20)
[2022-01-03] MEDS: amLODIPine 5 MG TAB PO SCH (08:21)
[2022-01-03] MEDS: FUROSEMIDE 10 MG/ML 4 ML VIAL IV SCH (08:21)
[2022-01-03] MEDS: guaiFENesin SYRUP 100MG/5ML 200 MG/10 ML CUP PO SCH (08:21)
[2022-01-03] MEDS: POTASSIUM BICARBONATE/CIT AC 20 MEQ TABLET.EFF PO SCH (08:21)
[2022-01-03] MEDS: PANTOPRAZOLE 40 MG TABLET PO SCH (08:22)
[2022-01-03] MEDS: LOSARTAN 50 MG TAB PO SCH (08:22)
[2022-01-03] MEDS: IPRATROPIUM-ALBUTEROL 3 ML NEB INHALATION SCH ×2 (08:31→12:02)
--- NOTE | 2022-01-03 11:00 | P.PN ---
Subjective Progress Note Date: 01/03/22 The patient is seen today 01/02/2022 in follow-up on the regular medical floor. He is currently sitting up in a chair at the bedside. He is awake and alert in no acute distress. Feeling quite a bit better. He is down to 4 L high flow nasal cannula with O2 saturations in the mid 90s. This will be adjusted down to 3 L. He did receive Lasix yesterday and diuresed well. Currently in a -1.8 L balance. Current weight is 115 kg. Blood cultures revealed no growth. Sputum culture revealed no growth. White count 11.4. Hemoglobin 12.0. INR 2.4. Sodium 137. Potassium 3.7. BUN 42. Creatinine 1.0. Blood glucose 154. He is continued on Lasix 40 mg IV twice a day, DuoNeb inhalations, IV Solu-Medrol, antibiotics in the form of clindamycin and aztreonam. Anticoagulated with warfarin. The patient is seen today 01/03/2022 in follow-up on the regular medical floor. He is awake and alert in no acute distress. Currently sitting up in a chair at the bedside. Breathing better today compared to yesterday. Follow-up chest x- ray reveals some basilar atelectasis but no acute cardiopulmonary process. Evidence of COPD. Blood cultures revealed no growth. Sputum culture revealed no growth. White count 13.4. Hemoglobin 13.0. INR 2.9. Sodium 133. Potassium 3.5. BUN 39. Creatinine 0.87. He is continued on IV diuretics, IV Solu-Medrol, bronchodilators. Antibiotics in the form of clindamycin and aztreonam. He remains in a negative balance. Objective - Vital Signs Vital signs: Vital Signs Temp 97.7 F 01/03/22 01:53 Pulse 85 01/03/22 08:41 Resp 16 01/03/22 08:00 BP 144/69 01/03/22 08:00 Pulse Ox 90 L 01/03/22 08:31 Intake & Output 01/02/22 01/03/22 01/03/22 18:59 06:59 18:59 Intake Total 100 Output Total 950 500 Balance -950 -400 Intake: IV 100 Aztreonam 1 gm In Sodium 50 Chloride 0.9% 50 ml @ 16. 67 mls/hr IVPB Q8HR [facility] Rx#:[id number] Clindamycin 300 mg In 50 Dextrose 5% in Water 50 ml @ 50 mls/hr IVPB Q6H [facility] Rx#:[id number] Output: Urine 950 500 Other: Voiding Method Urinal Urinal # Voids 2 1 - Exam GENERAL EXAM: Alert, obese 81-year-old male patient, on 3 L high flow nasal cannula, up in a chair at the bedside, comfortable in no apparent distress. HEAD: Normocephalic. EYES: Normal reaction of pupils, equal size. NOSE: Clear with pink turbinates. THROAT: No erythema or exudates. NECK: No masses, no JVD. CHEST: No chest wall deformity. LUNGS: Equal air entry with faint crackles in posterior. Diminished. CVS: S1 and S2 normal with no audible murmur, regular rhythm. ABDOMEN: No hepatosplenomegaly, normal bowel sounds, no guarding or rigidity. SPINE: No scoliosis or deformity SKIN: No rashes CENTRAL NERVOUS SYSTEM: No focal deficits, tone is normal in all 4 extremities. EXTREMITIES: There is 1+ peripheral edema. No clubbing, no cyanosis. Peripheral pulses are intact. - Labs CBC & Chem 7: 01/03/22 06:17 01/03/22 06:17 Labs: Abnormal Lab Results - Last 24 Hours (Table) 01/02/22 01/02/22 01/02/22 Range/Units 11:22 16:19 20:13 WBC (3.8-10.6) k/uL Neutrophils # (1.3-7.7) k/uL Lymphocytes # (1.0-4.8) k/uL PT (9.0-12.0) sec INR (<1.2) Sodium (137-145) mmol/L Chloride (98-107) mmol/L Carbon Dioxide (22-30) mmol/L BUN (9-20) mg/dL Glucose (74-99) mg/dL POC Glucose (mg/dL) 169 H 187 H 195 H (75-99) mg/dL Calcium (8.4-10.2) mg/dL 01/03/22 01/03/22 01/03/22 Range/Units 06:17 06:17 06:17 WBC 13.4 H (3.8-10.6) k/uL Neutrophils # 11.9 H (1.3-7.7) k/uL Lymphocytes # 0.4 L (1.0-4.8) k/uL PT 28.8 H (9.0-12.0) sec INR 2.9 H (<1.2) Sodium 133 L (137-145) mmol/L Chloride 94 L (98-107) mmol/L Carbon Dioxide 34 H (22-30) mmol/L BUN 39 H (9-20) mg/dL Glucose 156 H (74-99) mg/dL POC Glucose (mg/dL) (75-99) mg/dL Calcium 7.6 L (8.4-10.2) mg/dL 01/03/22 Range/Units 06:57 WBC (3.8-10.6) k/uL Neutrophils # (1.3-7.7) k/uL Lymphocytes # (1.0-4.8) k/uL PT (9.0-12.0) sec INR (<1.2) Sodium (137-145) mmol/L Chloride (98-107) mmol/L Carbon Dioxide (22-30) mmol/L BUN (9-20) mg/dL Glucose (74-99) mg/dL POC Glucose (mg/dL) 161 H (75-99) mg/dL Calcium (8.4-10.2) mg/dL Microbiology - Last 24 Hours (Table) 12/29/21 06:15 Blood Culture - Preliminary Blood No Growth after 120 hours 12/31/21 08:41 Gram Stain - Final Sputum Sputum Culture - Final Assessment and Plan Assessment: 1 Acute COPD exacerbation, no evidence of any acute pneumonia. Chest x-ray showing some chronic scarring and atelectatic changes in lung bases bilaterally. No indication for an acute pneumonia. Pro-calcitonin 0.09. ProBNP level is not elevated. Troponins are all negative. Lactic acid level 1.3, the patient has been vaccinated an infected with COVID 19 in the past, clinically improving. Currently down to 3 L high flow nasal cannula. Off the BiPAP. 2 Shortness of breath secondary to above, improving 3 History of chronic COPD with a previous spirometry shows an FEV1 of 71% of related to maintain on Spiriva and Advair an outpatient basis also has a pro- air rescue inhaler and O2 at 2.5 L per minute nasal cannula 4 Obesity, current BMI 39.7 5 Remote history of DVT and pulmonary embolism maintained on left lung articulation with warfarin, INR is therapeutic at 2.4 6 Chronic lower extremity edema right more than left, dopplers negative for DVT 7 Hypertension 8 Hyperlipidemia 9 Recent history of tooth extraction 3 weeks ago 10 History of obstructive sleep apnea with sleep study over 10 years ago and had previously been intolerant to CPAP Plan: The patient was seen and evaluated Chest x-ray and labs reviewed Cleared for discharge from the pulmonary standpoint No need for any further antibiotics Continue prednisone taper starting at 40 mg daily for 4 days Continue oral diuretics Continue home oxygen and pulmonary medications Follow-up in the office in one to two-week I have personally seen and examined the patient, performed the documentation and the assessment and plan as written. Number of minutes spent on the visit: 10.
[2022-01-03 11:31] LABS: Glucose,Whole Blood 205 mg/dL (75-99)
[2022-01-03 12:16] VITALS: PULSE 80
--- NOTE | 2022-01-03 15:31 | DS ---
DISCHARGE SUMMARY DATE IS SERVICE: 01/03/2022 FINAL DIAGNOSES: 1. Chronic obstructive pulmonary disease acute exacerbation with acute hypoxic respiratory failure requiring BiPAP. 2. Acute kidney injury. 3. Hypertension. 4. Diabetes mellitus, type 2. 5. History of deep vein thrombosis. 6. Hyperlipidemia. DISCHARGE DISPOSITION: Patient discharged in stable condition with guarded condition with guarded prognosis. Total time taken: 35 minutes. HISTORY OF PRESENT ILLNESS: This 81-year-old gentleman with a past medical history of multiple medical problems was admitted with COPD acute exacerbation, treated symptomatically. Patient improved significantly. Patient was given antibiotics, bronchodilators, steroids and Dr. Kidd saw the patient. The most recent chest x-ray which was reviewed personally by me showed significant improvement and Dr. Kidd cleared the patient for discharge. On exam, vitals stable. Cardiovascular: S1, S2. Abdomen soft. Nervous system: No focal deficits. The patient discharged in stable condition. Guarded prognosis. The patient is recommended to take the home medications and continue the bronchodilators, tapering dose of steroids at this time. See medication reconciliation sheet for further information. The Lasix dose has been increased to 40 mg twice daily and follow with Dr. Mathew Solorio and Dr. Kidd with followup labs as well. MMODL / IJN: [id number] /
[2022-01-03] MEDS ORDERED: FUROSEMIDE 40 MG TAB PO SCH (16:00)
[2022-01-03] MEDS ORDERED: WARFARIN 2 MG TAB PO ONE (18:00)
[2022-01-04] MEDS ORDERED: predniSONE 20 MG TAB PO SCH (09:00)
== END 2022-01-03 13:11 | disposition home or self-care (01) | DRG 190 ==
LOC: EC 23:52 → 4SSUR 12-26 01:30
PROVIDERS: ADMIT Hospitalist; ATTEND Hospitalist
PROC: 5A09557 Assistance with Respiratory Ventilation, Greater than 96 Consecutive Hours, Continuous Positive Airway Pressure (ICD-10-PCS; principal; 2021-12-26)
DX: J44.1 Chronic obstructive pulmonary disease with (acute) exacerbation (principal); J96.01 Acute respiratory failure with hypoxia; D68.59 Other primary thrombophilia; J90 Pleural effusion, not elsewhere classified; J98.11 Atelectasis; N17.9 Acute kidney failure, unspecified; J20.9 Acute bronchitis, unspecified; Z20.822 Contact with and (suspected) exposure to COVID-19; J44.0 Chronic obstructive pulmonary disease with (acute) lower respiratory infection; T45.515A Adverse effect of anticoagulants, initial encounter; I07.1 Rheumatic tricuspid insufficiency; I10 Essential (primary) hypertension; T38.0X5A Adverse effect of glucocorticoids and synthetic analogues, initial encounter; E11.65 Type 2 diabetes mellitus with hyperglycemia; N62 Hypertrophy of breast; G47.33 Obstructive sleep apnea (adult) (pediatric); I87.8 Other specified disorders of veins; R00.0 Tachycardia, unspecified; E66.01 Morbid (severe) obesity due to excess calories; E78.5 Hyperlipidemia, unspecified; F03.90 Unspecified dementia, unspecified severity, without behavioral disturbance, psychotic disturbance, mood disturbance, and anxiety; F41.9 Anxiety disorder, unspecified; Z71.3 Dietary counseling and surveillance; Z68.39 Body mass index [BMI] 39.0-39.9, adult; Z79.01 Long term (current) use of anticoagulants; Z79.84 Long term (current) use of oral hypoglycemic drugs; Z79.899 Other long term (current) drug therapy; Z82.5 Family history of asthma and other chronic lower respiratory diseases; Z86.16 Personal history of COVID-19; Z86.711 Personal history of pulmonary embolism; Z86.718 Personal history of other venous thrombosis and embolism; Z87.891 Personal history of nicotine dependence; Z88.1 Allergy status to other antibiotic agents; Z88.0 Allergy status to penicillin; Z91.018 Allergy to other foods; X58.XXXA Exposure to other specified factors, initial encounter
CPT/HCPCS: 36415; 71045; 80048; 80053; 81003; 83036; 83605; 83735; 83880; 84100; 84145; 84484; 85025; 85379; 85610; 85652; 85730; 86038; 87040; 87070; 87205; 87635; 93005; 93306; 93970; 94640; 94660; 94760; 96372; 96374; 96375; 96376; 99285